=== PATIENT | female | born 1970 | race Caucasian/White ===

== ENCOUNTER → 2016-10-24 | Outpatient (CLI) | payer BC | END | disposition home or self-care (01) | LOC: CPPFTMAIN 13:06 | PROVIDERS: ATTEND Internal Medicine Sleep Medicine | DX: G47.33 Obstructive sleep apnea (adult) (pediatric) (principal); J45.50 Severe persistent asthma, uncomplicated | CPT/HCPCS: 94060; 94726; 94729 ==

== ENCOUNTER → 2018-01-30 | Outpatient (CLI) | payer BC ==
--- NOTE | 2018-01-30 08:42 | MR ---
EXAMINATION TYPE: MR lumbar spine wo con DATE OF EXAM: 01/30/2018 COMPARISON: Lumbar spine x-ray July 27, 2017 HISTORY: Lumbago with sciatica, left side per order. Back pain causing bilateral leg numbness hand pa in since May 2017 per patient. TECHNIQUE: Multiplanar, multisequence imaging of the lumbar spine is performed without IV contrast. FINDINGS: Sagittal images of the lumbar spine show vertebral body heights and alignment to appear sat isfactory. Multilevel disc desiccation is seen with relative sparing of L1-L2 level. There is moderat e disc space narrowing L2-L3 level with mild to moderate anterior spurring is heterogeneous Modic typ e II degenerative endplate changes. Posterior disc herniation is seen at this level on sagittal image s. The conus medullaris is normal in position and signal ending at inferior L1 level. There is a fo cus of rim T2 hypointense round lesion at the L4-L5 disc space noted sagittal image 6 left paracentra l region noted. Areas isointense on T1-weighted images. There is overall heterogeneity of bone marrow signal intensity with mild multilevel anterior spurring. Axial images at the T12-L1 and L1-L2 levels show mild to moderate facet degenerative changes bilater ally but spinal canal is preserved and bilateral neural foramina are patent. Axial images at L2-L3 level show moderate broad disc bulge with right lateral disc protrusion compone nt effacing anterior thecal sac. There is mild facet arthropathy bilaterally. There is asymmetric mil d to moderate right-sided inferior neural foraminal narrowing. Encroachment on right L2 nerve is susp ected axial image 18 and sagittal image 10 at the extraforaminal location. Axial images at L3-L4 level show mild to moderate facet degenerative changes bilaterally. There is mi ld broad disc bulge mildly effacing anterior thecal sac. There is mild to moderate left greater than right anterior-inferior neural foraminal narrowing. Axial images at L4-L5 show moderate to advanced facet degenerative changes bilaterally. I suspect syn ovial cyst related to asymmetric advanced left-sided facet arthropathy effacing the lateral recess an d left lateral spinal canal axial image 8. There is mild broad-based posterior disc protrusion. There is mild right-sided neural foraminal narrowing. There is moderate to advanced left-sided neural fora estefany narrowing encroaching on left L4 nerve seen best on sagittal images 3 and 4 and axial image 8. Axial images at L5-S1 level show advanced facet degenerative changes bilaterally. There is broad disc bulge with right lateral disc protrusion component axial image 2. Spinal canal is preserved. Left-si ded neural foramen is patent. Right side shows mild narrowing. No suspicious retroperitoneal findings are identified. IMPRESSION: Multilevel degenerative changes in lumbar spine as detailed above. Most prominent degener ative changes and disc herniations L2-L3 level. Most prominent facet arthropathy lower lumbar levels with a 1.1 cm synovial cyst related to left-sided advanced facet arthropathy at every significant mas s effect on lateral recess and left lateral spinal canal. Further details are noted as discussed lornav e. Facet arthropathy quite pronounced for patient's chronologic age.
== END ==
LOC: RADMRIMAIN 07:59
PROVIDERS: ATTEND Family Medicine
DX: M71.38 Other bursal cyst, other site (principal); M51.26 Other intervertebral disc displacement, lumbar region; M46.96 Unspecified inflammatory spondylopathy, lumbar region
CPT/HCPCS: 72148

== ENCOUNTER → 2018-05-09 | Outpatient (CLI) | payer BC ==
--- NOTE | 2018-05-09 11:47 | XR ---
EXAMINATION TYPE: XR chest 2V DATE OF EXAM: 05/09/2018 COMPARISON: Chest x-ray August 01, 2016. HISTORY: Preoperative study for back surgery. TECHNIQUE: Frontal and lateral views of the chest are obtained. FINDINGS: There is no focal air space opacity, pleural effusion, or pneumothorax seen. The cardiac silhouette size is within normal limits. The osseous structures are intact. Cholecystectomy clips a re redemonstrated on lateral view. IMPRESSION: No acute cardiopulmonary process. No significant change from prior.
== END | disposition home or self-care (01) ==
LOC: RADXRYALE 11:33
PROVIDERS: ATTEND Physician Assistant Medical
DX: Z01.818 Encounter for other preprocedural examination (principal)
CPT/HCPCS: 71046

== ENCOUNTER → 2018-05-10 | Outpatient (CLI) | payer BC ==
[2018-05-10 12:12] LABS: Appearance,Urine Clear (Clear); Bilirubin,Urine Negative (Negative); Blood,Urine Negative (Negative); Color,Urine Light Yellow; Glucose,Urine (UA) Negative (Negative); Ketones,Urine Negative (Negative); Leukocyte Esterase,Urine Negative (Negative); Nitrite,Urine Negative (Negative); PH, Urine 6.5 (5.0-8.0); Protein,Urine Negative (Negative); Specific Gravity,Urine 1.006 (1.001-1.035); Urobilinogen,Urine <2.0 mg/dL (<2.0)
[2018-05-10 12:32] LABS: Basophils % (A) 0 %; Eosinophils # (A) 0.2 k/uL (0-0.7); Eosinophils % (A) 3 %; HCT 41.1 % (34.0-46.0); HGB 13.6 gm/dL (11.4-16.0); Lymphocytes # (A) 2.3 k/uL (1.0-4.8); Lymphocytes % (A) 33 %; MCH 30.6 pg (25.0-35.0); MCHC 33.2 g/dL (31.0-37.0); MCV 92.2 fL (80.0-100.0); Mean Platelet Volume 7.6; Monocytes # (A) 0.3 k/uL (0-1.0); Monocytes % (A) 4 %; Neutrophils # (A) 4.1 k/uL (1.3-7.7); Neutrophils % (A) 59 %; Platelet Count 349 k/uL (150-450); RBC 4.45 m/uL (3.80-5.40)
[2018-05-10 12:42] LABS: INR 0.9 (<1.2); Partial Thromboplastin Time 22.2 sec (22.0-30.0); Prothrombin Time 9.4 sec (9.0-12.0)
[2018-05-10 13:21] LABS: Anion Gap 9 mmol/L; Blood Urea Nitrogen 11 mg/dL (7-17); Calcium 9.6 mg/dL (8.4-10.2); Carbon Dioxide 25 mmol/L (22-30); Chloride 106 mmol/L (98-107); Glucose 89 mg/dL (74-99); Potassium 4.5 mmol/L (3.5-5.1); Sodium 140 mmol/L (137-145)
== END ==
LOC: LABPAT 11:00
PROVIDERS: ATTEND Orthopaedic Surgery Orthopaedic Surgery of the Spine
DX: Z01.812 Encounter for preprocedural laboratory examination (principal); M48.062 Spinal stenosis, lumbar region with neurogenic claudication; M71.38 Other bursal cyst, other site
CPT/HCPCS: 36415; 80048; 81003; 85025; 85610; 85730; 86850; 86900; 86901

== ENCOUNTER 2018-05-15 07:23 | Day surgery (SDC) | payer BC ==
[2018-05-09 09:33] VITALS: BMI 44.9
[~2018-05-15 07:23] MED LIST: BACITRACIN 50,000 UNIT, POLYMYXIN B 500,000 UNIT in SODIUM CHLORIDE 0.9% IRRIGATIO 1,00... IRRIGATION ONE
[2018-05-15] MEDS ORDERED: LACTATED RINGERS 1,000 ML IV ONE ×2 (08:31)
[2018-05-15] MEDS ORDERED: LIDOCAINE 1% 20 ML VIAL (10MG/ML) FOR IV START INTRADERMA ONE (08:31)
[2018-05-15] MEDS ORDERED: ONDANSETRON 4 MG/2 ML VIAL IVP ONE (08:40)
[2018-05-15] MEDS ORDERED: CLINDAMYCIN 600 MG in DEXTROSE 5% IN WATER 50 ML IVPB STA ×2 (08:45)
[2018-05-15] MEDS: ceFAZolin IN SWFI 2 GM/20 ML SYRINGE IVP ONE ×2 (09:32→14:17)
[2018-05-15] MEDS ORDERED: LIDOCAINE 0.5%-EPI 1:200,000 50 ML VIAL SQ ONE ×2 (09:50)
[2018-05-15] MEDS ORDERED: THROMBIN (BOVINE) 5,000 UNIT VIAL TOPICAL ONE (09:54)
[2018-05-15] MEDS ORDERED: GELATIN SPONGE,ABSORB (LARGE) 1 EACH SPONGE TOPICAL ONE (09:54)
[2018-05-15] MEDS ORDERED: methylPREDNISolone ACETATE 40 MG/ML 1 ML VIAL MISCELLANE ONE (10:18)
--- NOTE | 2018-05-15 10:27 | XR ---
Fluoroscopy History: lumbar laminectomy lumbar laminectomy, 6sec fl time
[2018-05-15] MEDS ORDERED: ONDANSETRON 4 MG/2 ML VIAL IVP PRN (10:40)
[2018-05-15] MEDS ORDERED: IBUPROFEN 600 MG TAB PO PRN (10:40)
[2018-05-15] MEDS ORDERED: HYDROmorphone 1 MG/ML 1 ML SYRINGE IVP PRN ×2 (10:40)
[2018-05-15] MEDS ORDERED: KETOROLAC 30 MG/ML 1 ML VIAL IVP PRN (10:40)
[2018-05-15] MEDS ORDERED: BENZOCAINE/MENTHOL LOZENG 1 EACH LOZENGE MUCOUS MEM PRN (10:40)
[2018-05-15] MEDS ORDERED: HYDROcodone/APAP 5-325MG 1 EACH TAB PO PRN ×2 (10:40)
[2018-05-15] MEDS ORDERED: ALBUTEROL NEBULIZED 2.5 MG/3 ML INHALATION PRN (10:42)
[2018-05-15] MEDS ORDERED: FLUTICASONE 50MCG/SPRAY NASAL 16GM EA NOSTRIL PRN (10:42)
[2018-05-15] MEDS ORDERED: Acetaminophen-Codeine 300-30mg TAB PO PRN (10:42)
[2018-05-15] MEDS ORDERED: SODIUM CHLORIDE 0.9% 1,000 ML IV SCH (10:45)
--- NOTE | 2018-05-15 10:53 | P.OP ---
Date of Procedure: 05/15/18 Preoperative Diagnosis: Epidural mass L4 5, presumable facet cyst Severe spinal stenosis L4 5 due to epidural mass Lower extremity radiculopathy with weakness Postoperative Diagnosis: Same Anesthesia: GETA Pathology: other (Epidural mass, presumable facet cyst from L4 5 sent to pathology) Condition: stable Disposition: PACU Description of Procedure: BRIEF OPERATIVE NOTE Preoperative Diagnosis:Epidural mass L4 5, presumable facet cyst Severe spinal stenosis L4 5 due to epidural mass Lower extremity radiculopathy with weakness Postoperative Diagnosis: Same Procedure: Laminectomy and decompression with partial medial facetectomy L4 5 Excision of epidural mass, presumable facet cyst Surgeon: Dr. Barkley Key Attendant: Nic Guevara is present throughout the entire the case persistence during positioning, dissection, exposure, visualization, and all crucial elements of the case as well as closure. Anesthesia: General anesthesia Estimated blood loss: Approximately 30 mL Complications: None apparent Components implanted: None Specimen: Epidural mass, presumable facet cyst on to pathology in formalin Disposition: To recovery room in good stable condition. OPERATIVE INDICATIONS The patient has been having issues in their lower back and lower extremities. She is found to have a large epidural mass at L4 5 which correlated well with her low back and lower extremity pain. She is having radiculopathy and some weakness in her lower extremity. The mass was presumably a facet cyst on the left with her symptoms. The patient has been through conservative treatment. We discussed various treatment options including surgery, and the patient wishes to proceed with surgery We discussed the risk, patient's alternatives and benefits of surgery including but not limited to, risk of bleeding risk of infection, risk of need for further surgery, risk of decreased, loss of motion, loss of function, nerve damage, paralysis, heart attack, blindness and . OPERATIVE SUMMARY After discussing all the risks, patient alternatives and benefits at length, the patient elected to proceed with surgical intervention, signed informed consent, and presented for their procedure. The patient was seen and examined in the preoperative holding area and the surgical site was marked. The patient was given antibiotics and brought to the operating room. The patient was sedated and intubated by anesthesia in standard fashion. The patient was positioned on to the operating room table in a prone position on the appropriate frame which was well-padded and well molded. We were careful to pad any bony prominences and pressure points. We were careful to maintain the patient's cervical spine and good neutral alignment and position throughout. The patient was prepped and draped in a normal standard fashion. An appropriate timeout and keystone protocol performed. We were able to proceed with the surgery. Fluoroscopy was utilized to establish the appropriate level at L4 5. The local wound area was infiltrated with local anesthetic. An incision was made at the midline longitudinally over the appropriate levels approximately 2 and half centimeters and L4 5. Dissection was taken down subcutaneously to the level of the fascia which was split midline. Dissection was taken over the lamina. Intraoperative fluoroscopy was taken which showed a marker at the appropriate level. With the appropriate level positively confirmed at L4 5, we were able to proceed with laminectomy. The wound was copiously irrigated and suctioned dry as had been done periodically throughout the case. I performed a laminectomy with a combination of curettes and a high- speed bur and Kerrison rongeurs. A small medial facetectomy was performed again further access. A partial foraminotomy was also performed. Portions of the ligamentum flavum were taken down. There was a large structure at the posterior lateral aspect extending from the facet joint which was encapsulated. As a presumable facet cyst. I was able to mobilize the cyst itself and take down the margins as well as the contents of the cyst. Was filled with cystic type fluid and congealed fluid. The facet capsule and the facet cyst capsule as well as the contents of the cyst were removed and passed off to be sent to pathology. I was able to expose the dura and traversing nerve root. I was able to mobilize the traversing nerve root and gain access to the disc space. Removal of the cyst offered excellent decompression posteriorly. The nerve root was freely mobile. There was no specific herniation or extruded fragment from the disc space itself. I did not feel we had to perform any discectomy at this point. There were no extruded fragments noted. There is no evidence of dural tear or leak. Good hemostasis maintained. The wound was copiously irrigated and suctioned dry. Good decompression and excision of the epidural mass was noted. We were able to proceed with closure. The fascia was closed for a watertight closure. The subcuticular tissue was closed with absorbable suture. The wound was cleaned and dried and dressed with the appropriate dressing. The drapes were broken down. The patient was gently rolled back onto their hospital bed being careful to maintain their cervical spine and good neutral alignment and position. They were woken up by anesthesia, extubated, and brought to the recovery room in good stable condition. The patient will be admitted to the hospital for observation and for appropriate postoperative care, medical management and monitoring. We will continue to follow them closely about the postoperative course.
[2018-05-15 15:05] VITALS: BP 117/58; PULSE 68; RESP 18; TEMP 97.8
[2018-05-15] MEDS ORDERED: ceFAZolin IN SWFI 2 GM/20 ML SYRINGE IVP SCH (16:00)
[2018-05-15] MEDS ORDERED: FLUTICASONE 44 MCG INHALER INHALATION SCH (20:00)
[2018-05-16] MEDS ORDERED: FERROUS SULFATE 325 MG TAB PO SCH (09:00)
[2018-05-16] MEDS ORDERED: FAMOTIDINE 20 MG TAB PO SCH (09:00)
[2018-05-16] MEDS ORDERED: LORATADINE 10 MG TAB PO SCH (09:00)
[2018-05-16] MEDS ORDERED: ATENOLOL 50 MG TAB PO SCH (09:00)
[2018-05-16] MEDS ORDERED: CHOLECALCIFEROL 1,000 UNIT TAB PO SCH (09:00)
[2018-05-16] MEDS ORDERED: VENLAFAXINE HCL 75 MG TAB PO SCH (09:00)
[2018-05-16] MEDS ORDERED: MONTELUKAST 10 MG TAB PO SCH (09:00)
[2018-05-16] MEDS ORDERED: MULTIVITAMINS, THERA 1 EACH TAB PO SCH (12:00)
== END 2018-05-15 16:15 | disposition home or self-care (01) ==
LOC: OR 07:23 → 5MS5E 10:51 → OR 16:15
PROVIDERS: ATTEND Orthopaedic Surgery Orthopaedic Surgery of the Spine
DX: M48.062 Spinal stenosis, lumbar region with neurogenic claudication (principal); M71.38 Other bursal cyst, other site; M43.16 Spondylolisthesis, lumbar region; M47.26 Other spondylosis with radiculopathy, lumbar region; M41.86 Other forms of scoliosis, lumbar region; E78.5 Hyperlipidemia, unspecified; Z87.891 Personal history of nicotine dependence; Z79.1 Long term (current) use of non-steroidal anti-inflammatories (NSAID); Z79.51 Long term (current) use of inhaled steroids; Z79.899 Other long term (current) drug therapy; Z91.041 Radiographic dye allergy status; Z88.0 Allergy status to penicillin; Z91.013 Allergy to seafood
CPT/HCPCS: 81025; 86900; 86901; 88304; 86850; 72020; 63267; J1030; J2405; J1885; J1170

== ENCOUNTER → 2019-01-01 | Outpatient (CLI) | payer BC ==
--- NOTE | 2019-01-02 09:46 | MM ---
Reason for exam: screening (asymptomatic). Last mammogram was performed 3 years and 9 months ago. History: Family history of breast cancer in aunt. Took hormonal contraceptives for 7 years. Physical Findings: A clinical breast exam by your physician is recommended on an annual basis and results should be correlated with mammographic findings. MG Screening Mammo w CAD Bilateral CC and MLO view(s) were taken. Prior study comparison: April 09, 2015, bilateral MG screening mammo w CAD. November 26, 2013, bilateral digital screening mammo w/CAD. There are scattered fibroglandular densities. Benign calcifications in the left breast. No significant changes when compared with prior studies. ASSESSMENT: Benign, BI-RAD 2 RECOMMENDATION: Routine screening mammogram of both breasts in 1 year.
== END | disposition home or self-care (01) ==
LOC: RADMAMWWP 10:49
PROVIDERS: ATTEND Family Medicine
DX: Z12.31 Encounter for screening mammogram for malignant neoplasm of breast (principal)
CPT/HCPCS: 77067

== ENCOUNTER → 2019-02-17 | Outpatient (CLI) | payer BC ==
--- NOTE | 2019-02-17 14:26 | XR ---
EXAMINATION TYPE: XR chest 2V DATE OF EXAM: 02/17/2019 COMPARISON: 05/09/2018 HISTORY: Preoperative clearance. TECHNIQUE: Frontal and lateral views of the chest are obtained. FINDINGS: There is no focal air space opacity, pleural effusion, or pneumothorax seen. Minimal linea r left basilar subsegmental atelectasis is seen. The cardiac silhouette size is within normal limits . The osseous structures are intact. Cholecystectomy clips are noted. IMPRESSION: Minimal left basilar linear subsegmental atelectasis, otherwise no acute cardiopulmonary process.
== END | disposition home or self-care (01) ==
LOC: RADXRYALE 14:04
PROVIDERS: ATTEND Physician Assistant Medical
DX: Z01.818 Encounter for other preprocedural examination (principal); J98.11 Atelectasis
CPT/HCPCS: 71046

== ENCOUNTER 2019-03-03 11:54 | Inpatient (IN) | payer BC ==
[2019-02-26 13:29] VITALS: BMI 43.0
[~2019-03-03 11:54] MED LIST changes: +LIDOCAINE 1% 20 ML VIAL (10MG/ML) FOR IV START INTRADERMA PRN; +ONDANSETRON 4 MG/2 ML VIAL IVP ONE; +ceFAZolin IN SWFI 2 GM/20 ML SYRINGE IVP ONE
[2019-03-03] MEDS: LACTATED RINGERS 1,000 ML IV SCH (12:34)
[2019-03-03] MEDS ORDERED: LIDOCAINE 1% INJ 10MG/ML (20 ML MDV) ONE (13:34)
[2019-03-03] MEDS ORDERED: GLYCOPYRROLATE 0.2 MG/ML 2 ML VIAL ONE (13:34)
[2019-03-03] MEDS ORDERED: NEOSTIGMINE 1 MG/ML 10 ML VIAL ONE (13:34)
[2019-03-03] MEDS ORDERED: ePHEDrine SULFATE/0.9% NACL/PF 50 MG/5 ML SYRINGE IV ONE (13:34)
[2019-03-03] MEDS ORDERED: MIDAZOLAM 2 MG/2 ML VIAL ONE (13:34)
[2019-03-03] MEDS ORDERED: fentaNYL (PF) 50 MCG/ML 2 ML AMP ONE (13:34)
[2019-03-03] MEDS ORDERED: ROCURONIUM BROMIDE 10 MG/ML 10 ML VIAL IV ONE (13:34)
[2019-03-03] MEDS ORDERED: SUCCINYLCHOLINE CHLORIDE 100 MG/5 ML SYR IV ONE (13:34)
[2019-03-03] MEDS ORDERED: DEXAMETHASONE SOD PHOS (MDV) 100 MG/10 ML VIAL ONE (13:34)
[2019-03-03] MEDS ORDERED: PROPOFOL 10 MG/ML 20 ML VIAL IV ONE (13:34)
[2019-03-03] MEDS ORDERED: HYDROmorphone (PF) 1 MG/ML ONE (13:34)
[2019-03-03] MEDS ORDERED: LIDOCAINE 0.5%-EPI 1:200,000 50 ML VIAL SQ ONE ×2 (14:22)
[2019-03-03] MEDS ORDERED: GELATIN SPONGE,ABSORB (LARGE) 1 EACH SPONGE TOPICAL ONE (14:22)
[2019-03-03] MEDS ORDERED: LACTATED RINGERS 1,000 ML IV ONE ×2 (15:33)
[2019-03-03] MEDS ORDERED: ONDANSETRON 4 MG/2 ML VIAL IVP PRN (16:52)
[2019-03-03] MEDS ORDERED: HYDROmorphone 0.5 MG/0.5 ML SYRINGE IVP PRN (16:52)
[2019-03-03] MEDS ORDERED: HYDROcodone/APAP 5-325MG 1 EACH TAB PO PRN (16:52)
[2019-03-03] MEDS ORDERED: HYDROmorphone 1 MG/ML 1 ML SYRINGE IVP PRN (16:52)
[2019-03-03] MEDS ORDERED: BENZOCAINE/MENTHOL LOZENG 1 EACH LOZENGE MUCOUS MEM PRN (16:52)
[2019-03-03] MEDS ORDERED: MAGNESIUM HYDROXIDE 2,400 MG/10 ML CUP PO PRN (16:52)
[2019-03-03] MEDS ORDERED: ALBUTEROL NEBULIZED 2.5 MG/3 ML INHALATION PRN (16:55)
--- NOTE | 2019-03-03 17:01 | P.OP ---
Date of Procedure: 03/03/19 Preoperative Diagnosis: Herniated nucleus pulposis L4 5, degenerative scoliosis, spondylolisthesis L4 5, history of laminectomy L4 5, lower extremity radiculopathy, low back pain Postoperative Diagnosis: Same Anesthesia: GETA Pathology: none sent Condition: stable Disposition: PACU Description of Procedure: DESCRIPTION OF PROCEDURE(S): BRIEF OPERATIVE NOTE Preoperative Diagnosis: Herniated nucleus pulposis L4 5, degenerative scoliosis, spondylolisthesis L4 5, history of laminectomy L4 5, lower extremity radiculopathy, low back pain Postoperative Diagnosis: Same Procedure: Revision Laminectomy and decompression L4 5 Minimally invasive Posterior lateral decompression and fusion L4 5 Minimally invasive Transforaminal lumbar interbody fusion for a 360 fusion L4 5 Discectomy for decompression L4 5 Placement of interbody graft L4 5 Local autogenous bone grafting Harvesting of bone marrow aspirate be of the pedicle and vertebral body of L4 Use of bone graft extenders Surgeon: Dr. Barkley [employer] Account[employer] Manager: Nic PERRY who is present throughout the entire the case persistence during positioning, dissection, exposure, visualization, and all crucial elements of the case as well as closure. Anesthesia: General anesthesia Estimated blood loss: Approximately 250 mL Complications: None apparent Components implanted: K2M middle evasive [place] pedicle screw system with a cascading the interbody cage and 1 osteal amp sponge and DBX bone fibers to supplemental local autogenous and bone marrow aspirate graft Disposition: To recovery room in good stable condition. OPERATIVE INDICATIONS The patient has had long-standing issues in their lower back and lower extremities. At the end of last year she had a large facet cyst at L4 5 and was having severe radiculopathy. She underwent laminectomy decompression and excision of facet cyst and initially did quite well with this. She was doing well for several months until the past couple months where she was having worsening pain and symptoms at her back and in her left lower extremity. She is found have a new disc herniation at the far lateral space L4 5 with evidence of progressive degeneration and spondylolisthesis with asymmetric disc degeneration and degenerative scoliosis at L4 5. She is having worsening symptoms despite conservative care The patient has been through conservative treatment. She is not having a long-lasting benefit with conservative treatment and we discussed surgical options with her. We discussed the possibility of revision laminectomy decompression versus the possibility of decompression with fusion. Given her prior surgery and advanced degeneration with listhesis and asymmetric disc degeneration we felt that stabilization would be necessary. We discussed various treatment options including surgery, and the patient wishes to proceed with surgery We discussed the risk, patient's alternatives and benefits of surgery including but not limited to, risk of bleeding risk of infection, risk of need for further surgery, risk of decreased, loss of motion, muscle function, malunion nonunion, hardware failure, nerve damage, paralysis, heart attack, blindness and . OPERATIVE SUMMARY After discussing all the risks, patient alternatives and benefits at length, the patient elected to proceed with surgical intervention, signed informed consent, and presented for their procedure. The patient was seen and examined in the preoperative holding area and the surgical site was marked. The patient was given antibiotics and brought to the operating room. The patient was sedated and intubated by anesthesia in standard fashion. The patient was positioned on to the operating room table in a prone position on the appropriate frame which was well-padded and well molded. We were careful to pad any bony prominences and pressure points. We were careful to maintain the patient's cervical spine and good neutral alignment and position throughout. The patient was prepped and draped in a normal standard fashion. An appropriate timeout and keystone protocol performed. We were able to proceed with the surgery. The local wound area was infiltrated with local anesthetic. I was able utilize C-arm guidance to establish appropriate position over the pedicles bilaterally at the appropriate levels of L4 5. With the appropriate levels confirmed was able to make small stab incisions over the appropriate pedicle sites bilaterally. Utilizing C-arm in his house able to establish a Jamshidi needle over the lateral aspect of the pedicle and advanced the trocar into the pedicle being careful not to breech superiorly inferiorly medially or laterally. Position was confirmed regularly with AP and lateral images on C- arm. I was able to establish the trocar into the pedicle appropriately into the posterior aspect of the vertebral body bilaterally at the appropriate levels at L4 5. This was done at each of the pedicle positions and each of the vertebrae. On the right at L4 I did withdraw approximately 30 mL of bone marrow aspirate from the vertebral body. I was able place the guidewire into the trocar and into the vertebral body appropriately under C-arm guidance. Dissection was taken down over the wire to the appropriate starting position for the screw placed. The appropriate length screw was chosen, threaded over the guidewire and screwed appropriately into the pedicle and vertebral body under C-arm guidance in excellent alignment and position with good bony purchase. This is done at each of the screw sites at the appropriate levels. With the screws intact I extended the incision to connect the screw hole sites on the most symptomatic side on the left at L4 5. I dissected down to establish access over the pars and lamina to the base of the spinous process. I was able to expose the facet joint. The capsule the facet was taken down and showed some facet arthrosis at the joint. There is significant scar tissue formation around the medial aspect of the facet joint as well and along the traversing nerve root and dura. I was able to use a combination of curettes and Kerrison rongeurs and a high-speed drill to take down the facet joint and do a facetectomy. Partial laminectomy was also performed. I was able get excellent foraminal decompression and central decompression with undermining across midline to perform a laminectomy centrally and contralaterally. I had to perform rate care to take down some of the scar tissue while leaving the dura intact. There was still some remaining scar tissue around the traversing nerve root which was not able to be removed. As able get good central decompression. The ligamentum flavum was taken down to further decompress centrally and at bilateral neural foramen. I was able to expose the disc space and visualize the traversing nerve root. Note was made of some disc protrusion and disc herniation under the facet joint which had been removed at the level causing further compression of the nerve root. I was able to establish a annulotomy at the appropriate level protecting soft tissue and neural structures. Note was made of some disc desiccation at the disc. I performed a complete discectomy at L4 5 with accommodation of curettes and rasps and scrapers. I was able get good endplate preparation at the disc space. I sized for the appropriate size interbody spacer protecting the soft tissue and neural structures. The wound was copiously irrigated and suctioned dry. There is no evidence of any dural tear or leak. I was able to pack the disc space with local autogenous bone graft as well as a small amount of bone graft which was also placed into the interbody cage itself. Protecting the soft tissue structures and neural structures I was able place the interbody cage in good alignment and good position with good fit and fill at the interbody space. His issues was confirmed with C-arm guidance. Good hemostasis maintained. There is no evidence of any dural tear or leak. The wound was irrigated and suctioned dry. With the hardware intact, intraoperative C-arm imaging was again taken which showed good alignment and position of the hardware at the appropriate levels at L4 5. We were then able to measure, contour and place the rods and appropriate hardware bilaterally. I was able to place capcrews, tighten them down, and torque them with the torque screwdriver appropriately. With this intact I was able to place the local autogenous bone graft with additional bone graft enhancer as necessary into the posterior lateral gutters over the decorticated transverse processes. The remainder of the bone graft was placed over the facet joint on the contralateral side after taking down the facet joint capsule. With the bone graft intact, a stable construct, and good decompression at the appropriate levels, we were able to proceed with closure. Good hemostasis was maintained. There is no evidence of dural tear or leak. The fascia was closed for a watertight closure. he subcuticular tissue was closed with absorbable suture. The wound was cleaned and dried and dressed with the appropriate dressing. The drapes were broken down. The patient was gently rolled back onto their hospital bed being careful to maintain their cervical spine and good neutral alignment and position. They were woken up by anesthesia, extubated, and brought to the recovery room in good stable condition. The patient will be admitted to the hospital for appropriate postoperative care, medical management and monitoring. We will continue to follow them closely about the postoperative course.
[2019-03-03] MEDS: fentaNYL (PF) 50 MCG/ML 2 ML AMP IV PRN ×2 (17:06→17:16)
--- NOTE | 2019-03-03 17:43 | XR ---
Limited lumbar spine HISTORY: Lumbar fusion 5 intraoperative C-arm images document the procedure.
--- NOTE | 2019-03-03 17:44 | FL ---
Fluoroscopy HISTORY: Lumbar fusion 2 minutes 28 seconds fluoroscopy time supplied to the referring clinician. 5 intraoperative C-arm im ages document the procedure. See dictated report from orthopedic surgery.
[2019-03-03] MEDS: FAMOTIDINE 20 MG TAB PO SCH (19:01)
[2019-03-03] MEDS: PRAVASTATIN SODIUM 20 MG TAB PO SCH (19:01)
[2019-03-03] MEDS: HYDROcodone/APAP 5-325MG 1 EACH TAB PO PRN (19:59)
[2019-03-03] MEDS: ATENOLOL 50 MG TAB PO SCH (19:59)
[2019-03-03] MEDS: VENLAFAXINE HCL ER 75 MG CAP PO SCH (19:59)
[2019-03-03] MEDS: MONTELUKAST 10 MG TAB PO SCH (19:59)
[2019-03-03] MEDS: SODIUM CHLORIDE 0.9% 1,000 ML IV SCH (20:03)
[2019-03-03] MEDS: ACETAMINOPHEN TAB 500 MG TAB PO SCH (21:50)
[2019-03-03] MEDS: ceFAZolin 3 GM in SODIUM CHLORIDE 0.9% 100 ML IVPB SCH (21:50)
[2019-03-04] MEDS: HYDROcodone/APAP 5-325MG 1 EACH TAB PO PRN ×6 (00:01→21:15)
[2019-03-04] MEDS: ceFAZolin 3 GM in SODIUM CHLORIDE 0.9% 100 ML IVPB SCH (05:03)
[2019-03-04] MEDS: SODIUM CHLORIDE 0.9% 1,000 ML IV SCH (05:05)
[2019-03-04] MEDS: LACTATED RINGERS 1,000 ML IV SCH (07:04)
[2019-03-04] MEDS: FLUTICASONE 110 MCG INHALER INHALATION SCH (08:32)
[2019-03-04 08:34] LABS: African American GFR (CKD) >90 (>60 ml/min/1.73 sqM); Anion Gap 10 mmol/L; Blood Urea Nitrogen 9 mg/dL (7-17); Carbon Dioxide 21 mmol/L (22-30); Chloride 107 mmol/L (98-107); Glucose 112 mg/dL (74-99); Potassium 4.2 mmol/L (3.5-5.1); Sodium 138 mmol/L (137-145)
--- NOTE | 2019-03-04 09:02 | P.PN ---
Progress Note - Text Progress Note Date: 03/04/19 Orthopedic Spine Patient is a pleasant 48-year-old female who is seen and examined at the bedside following posterior lateral decompression and fusion performed yesterday. Patient states they are doing well postsurgically. She continues to have some numbness in the left lower extremity but states she is not currently experiencing any pain in the left lower extremity. She was experiencing significant pain in the left lower extremity prior to surgical intervention. He r low back pain has been adequately controlled postoperatively. Her pain is currently being controlled with oral medications. She is not requiring IV narcotic medication for pain control. She is very happy with her progress postoperatively. She's been able to get out of bed on her own. She is currently sitting in bedside chair. Currently does not complain of nausea, vomiting, fever, or chills. Patient is eating and voiding freely without difficulty. Physical Exam Lumbar Fusion: Status post surgical day number 1 Patient is awake, alert, and oriented 3 Vital signs stable Good chest excursion with deep inspiration and expiration Abdomen soft nontender Dorsiflexion, plantarflexion, and extensor hallucis longus positive sustained bilaterally No signs or symptoms of DVT; no calf pain; pneumatic cuffs not currently intact bilateral lower extremities Dressing is dry and intact with some dried blood over the inferior portions of the Telfa; no erythema, purulence, or signs of infection Neurovascularly intact bilaterally lower extremities Assessment: L4-5 minimally invasive posterior lateral decompression and fusion with transforaminal lumbar interbody fusion and revision laminectomy Left lower extremity radiculopathy L4-5 spondylolisthesis Low back pain History of L4-5 laminectomy Degenerative scoliosis History of hyperlipidemia, shortness of breath, and heart arrhythmia Obesity Plan: 1. Ambulate as tolerated; work with Physical Therapy to increase mobilization 2. Continue pain control with IV and oral medications; patient currently only requiring oral medications for pain control 3. Dressing to remain intact and may be changed to Telfa and Tegaderm 4. Medical management can continue to manage patient for patient's other medical issues 5. We will continue to follow the patient closely; patient has been progressing well postoperatively. If she continues to improve throughout the day, we will plan for discharge home tomorrow, 03/05/2019 6. Patient can follow-up with Nic Nguyen PA-C or Dr. Beto Barkley at [facility] in 2-3 weeks following discharge
[2019-03-04 09:13] LABS: Basophils % (A) 0 %; Eosinophils % (A) 0 %; HCT 38.5 % (34.0-46.0); HGB 12.4 gm/dL (11.4-16.0); Lymphocytes # (A) 1.2 k/uL (1.0-4.8); Lymphocytes % (A) 13 %; MCH 29.5 pg (25.0-35.0); MCHC 32.3 g/dL (31.0-37.0); MCV 91.2 fL (80.0-100.0); Mean Platelet Volume 7.9; Monocytes # (A) 0.4 k/uL (0-1.0); Monocytes % (A) 4 %; Neutrophils # (A) 7.9 k/uL (1.3-7.7); Neutrophils % (A) 83 %; Platelet Count 260 k/uL (150-450); RBC 4.22 m/uL (3.80-5.40); RDW 13.2 % (11.5-15.5); WBC 9.6 k/uL (3.8-10.6)
[2019-03-04] MEDS: FERROUS SULFATE 325 MG TAB PO SCH (10:23)
[2019-03-04] MEDS: CHOLECALCIFEROL 1,000 UNIT TAB PO SCH (10:23)
[2019-03-04] MEDS: SENNOSIDES-DOCUSATE SODIUM 1 EACH TAB PO SCH (10:24)
[2019-03-04] MEDS: MULTIVITAMINS, THERA 1 EACH TAB PO SCH (10:24)
[2019-03-04] MEDS: PRAVASTATIN SODIUM 20 MG TAB PO SCH (10:24)
[2019-03-04] MEDS: ACETAMINOPHEN TAB 500 MG TAB PO SCH ×3 (10:26→21:29)
[2019-03-04 12:33] VITALS: RESP 16
--- NOTE | 2019-03-04 14:24 | P.CONS ---
History of Present Illness - Reason for Consult Perioperative consultation management - History of Present Illness Patient is a pleasant 48-year-old the female was admitted for elective posterior lateral decompression and fusion surgery of the lumbar spine. 6 underwent surgery patient doesn't have a surgical drain in place pain is fairly well- controlled did pass gas. Patient does have history of hypertension patient of which is well controlled at this time patient is on atenolol which will be continued. Patient denied any fever chills nausea vomiting dysuria patient doesn't have a Montez catheter at this time completed perioperative antibiotics. Review of Systems REVIEW OF SYSTEMS: CONSTITUTIONAL: No fever, no malaise, no fatigue. HEENT: No recent visual problems or hearing problems. Denied any sore throat. CARDIOVASCULAR: No chest pain, orthopnea, PND, no palpitations, no syncope. PULMONARY: No shortness of breath, no cough, no hemoptysis. GASTROINTESTINAL: No diarrhea, no nausea, no vomiting, no abdominal pain. NEUROLOGICAL: No headaches, no weakness, no numbness. HEMATOLOGICAL: Denies any bleeding or petechiae. GENITOURINARY: Denies any burning micturition, frequency, or urgency. MUSCULOSKELETAL/RHEUMATOLOGICAL: Denies any joint pain, swelling, or any muscle pain. ENDOCRINE: Denies any polyuria or polydipsia. The rest of the 14-point review of systems is negative. Past Medical History Past Medical History: Asthma, GERD/Reflux, Hyperlipidemia Additional Past Medical History / Comment(s): arrythmia, migraines, occ palpitations, loose stools, History of Any Multi-Drug Resistant Organisms: None Reported Past Surgical History: Back Surgery, Bariatric Surgery, Section, Cholecystectomy, Heart Catheterization, Tubal Ligation Additional Past Surgical History / Comment(s): gastric bypass, laminectomy/cyst removed from spine, Past Anesthesia/Blood Transfusion Reactions: No Reported Reaction Smoking Status: Former smoker - Past Family History Father Family Medical History: Cancer Medications and Allergies Home Medications Medication Instructions Recorded Confirmed Type Albuterol Inhaler [Ventolin Hfa 2 puff INHALATION RT-QID PRN 05/09/18 03/03/19 History Inhaler] Atenolol 100 mg PO W/SUPPER 05/09/18 03/03/19 History Beclomethasone Dipropionate [Qvar 1 puff INHALATION RT-DAILY PRN 05/09/18 03/03/19 History 80 mcg] Cetirizine HCl [Zyrtec] 10 mg PO DAILY 05/09/18 03/03/19 History Cholecalciferol [Vitamin D3] 5,000 unit PO DAILY 05/09/18 03/03/19 History Montelukast [Singulair] 10 mg PO PC-SUPPER 05/09/18 03/03/19 History Multivitamins, Thera [Multivitamin 1 tab PO DAILY 05/09/18 03/03/19 History (formulary)] Ranitidine HCl [Zantac] 150 mg PO W/SUPPER 05/09/18 03/03/19 History Venlafaxine HCl [Effexor] 75 mg PO W/SUPPER 05/09/18 03/03/19 History Acetaminophen [Tylenol Extra 1,000 mg PO TID 02/26/19 03/03/19 History Strength] Farhat Back And Body 1 tab PO DAILY 02/26/19 03/03/19 History Iron Tablet 45 mg PO DAILY 02/26/19 03/03/19 History Naproxen Sodium [Aleve] 220 mg PO DAILY 02/26/19 03/03/19 History Pravastatin Sodium [Pravachol] 20 mg PO W/SUPPER 02/26/19 03/03/19 History Allergies Allergy/AdvReac Type Severity Reaction Status Date / Time Iodinated Contrast- Oral and Allergy Rash/Hives Verified 03/03/19 12:34 IV Dye Penicillins Allergy Rash/Hives Verified 03/03/19 12:34 sulfamethoxazole Allergy Rash/Hives Verified 03/03/19 12:34 [From Bactrim] trimethoprim [From Bactrim] Allergy Rash/Hives Verified 03/03/19 12:34 tramadol AdvReac Itching Verified 03/03/19 12:34 Physical Exam Vitals: Vital Signs Temp Pulse Pulse Resp BP Pulse Ox 03/04/19 12:32 99.4 F 67 16 144/55 98 03/04/19 06:56 17 03/04/19 05:33 98.0 F 60 18 144/84 97 03/03/19 23:57 63 140/84 98 03/03/19 20:00 89 135/70 98 03/03/19 19:30 82 124/81 97 03/03/19 19:00 79 117/64 03/03/19 18:49 97.6 F 80 16 119/78 94 L 03/03/19 18:20 16 03/03/19 18:19 71 120/79 03/03/19 18:04 97 16 112/76 97 03/03/19 17:49 97.1 F L 73 16 125/78 98 03/03/19 17:30 80 16 126/58 97 03/03/19 17:15 70 16 126/59 97 03/03/19 17:02 72 16 108/53 97 03/03/19 16:52 97.8 F 73 16 115/58 96 Intake and Output 03/03/19 03/04/19 03/04/19 22:59 06:59 14:59 Intake Total 457 224 5260 Output Total 300 2100 Balance 600 -1510 1100 Intake: IV 900 Intake, IV Titration 450 Amount Sodium Chloride 0.9% 1, 450 000 ml @ 75 mls/hr IV . [id number] PAUL Rx#:[id number] Oral 590 650 Output: Urine 100 2100 Uretheral (Montez) 1100 Estimated Blood Loss 200 Other: Voiding Method Indwelling Catheter Toilet # Voids 3 PHYSICAL EXAMINATION: GENERAL: The patient is alert and oriented x3, not in any acute distress. Well developed, well nourished. HEENT: Pupils are round and equally reacting to light. EOMI. No scleral icterus. No conjunctival pallor. Normocephalic, atraumatic. No pharyngeal erythema. No thyromegaly. CARDIOVASCULAR: S1 and S2 present. No murmurs, rubs, or gallops. PULMONARY: Chest is clear to auscultation, no wheezing or crackles. ABDOMEN: Soft, nontender, nondistended, normoactive bowel sounds. No palpable organomegaly. MUSCULOSKELETAL: No joint swelling or deformity. EXTREMITIES: No cyanosis, clubbing, or pedal edema. NEUROLOGICAL: Gross neurological examination did not reveal any focal deficits. SKIN: No rashes. Results CBC & Chem 7: 03/04/19 07:34 03/04/19 07:34 Labs: Abnormal Lab Results - Last 24 Hours (Table) 03/04/19 03/04/19 Range/Units 07:34 07:34 Neutrophils # 7.9 H (1.3-7.7) k/uL Carbon Dioxide 21 L (22-30) mmol/L Glucose 112 H (74-99) mg/dL Assessment and Plan Plan: -Hypertension patient blood pressure is fairly stable can be resumed on atenolol. -Lateral decompression of L4-L5 lumbar spine laminectomy: Pain management due to prophylaxis as per primary service and the continue physical therapy and occupational therapy and incentive spirometry -Asthma without any acute exacerbation patient was a former smoker -Gastroesophageal reflux disease -Hyperlipidemia for above-mentioned chronic medical problems patient was resumed on appropriate home medications.
[2019-03-04] MEDS: ATENOLOL 50 MG TAB PO SCH (17:42)
[2019-03-04] MEDS: MONTELUKAST 10 MG TAB PO SCH (17:42)
[2019-03-04] MEDS: VENLAFAXINE HCL ER 75 MG CAP PO SCH (17:42)
[2019-03-04] MEDS: FAMOTIDINE 20 MG TAB PO SCH (17:43)
[2019-03-05] MEDS: HYDROcodone/APAP 5-325MG 1 EACH TAB PO PRN ×4 (01:47→14:24)
[2019-03-05] MEDS: LACTATED RINGERS 1,000 ML IV SCH (04:28)
[2019-03-05] MEDS: ACETAMINOPHEN TAB 500 MG TAB PO SCH (09:44)
--- NOTE | 2019-03-05 10:19 | P.DS ---
Providers Date of admission: 03/03/19 11:54 Expected date of discharge: 03/05/19 Attending physician: Santi Barkley Consults: 03/03/19 16:52 Consult Physician Routine Consulting Provider: Lauro Weber Consult Reason/Comments: Medical management Do you want consulting provider notified?: Already Contacted Primary care physician: Jethro Bullock - Discharge Diagnosis(es) (1) Status post lumbar spinal fusion Current Visit: Yes Status: Acute (2) Low back pain radiating to lower extremity Current Visit: Yes Status: Acute (3) Degenerative scoliosis Current Visit: Yes Status: Acute (4) Spondylolisthesis at L4-L5 level Current Visit: Yes Status: Acute (5) Lumbar herniated disc Current Visit: Yes Status: Acute (6) History of laminectomy Current Visit: Yes Status: Acute (7) History of gastric bypass Current Visit: Yes Status: Acute (8) Obesity Current Visit: Yes Status: Acute (9) Hyperlipidemia Current Visit: Yes Status: Acute Hospital Course: This is a pleasant 48-year-old female who presented with low back pain and lower extremity radiculopathy, L4-5 spondylolisthesis, history of previous laminectomy L4-5, degenerative scoliosis, and L4-5 herniated nucleus pulposis who failed outpatient conservative therapy. She was admitted for an L4-5 minimally invasive posterior lateral decompression and fusion with transforaminal lumbar interbody fusion revision L4-5 laminectomy. The patient tolerated the procedure well and did well postoperatively. Her symptoms have been controlled with oral pain medications postoperatively. She has not required any IV pain medication. She does continue to take Summer Shade 5 mg/325 mg 2 tabs every 4 hours as needed for pain. She has been able to ambulate the hallways and to the restroom. She is eating and voiding without difficulty. She feels she is ready for discharge home today. She did use of some pain at the surgical sites that has been controlled medication. She is not currently experiencing any significant lower extremity radiculopathy or weakness bilaterally. Condition on day of discharge stable. Patient will be discharged home. Patient was cleared preoperatively f or surgery by Dr. Bullock. Patient currently denies any nausea, vomiting, fever, or chills. Patient is eating and voiding freely without difficulty. She has not had a bowel movement but is passing gas. Patient may shower Tegaderm dressing intact. Patient may remove Tegaderm dressing in 3 days and shower without a dressing at that time. Patient should keep Steri-Strips intact and allow them to fall off naturally. Patient should refrain from driving until at least after their first follow-up appointment in the office. Patient should avoid excessive bending, lifting, and twisting; no lifting greater than 10 pounds. Patient is a past medical history which includes hyperlipidemia, shortness of breath, heart arrhythmia, obesity and history of gastric bypass 20 years ago. MAPS has been reviewed today, 03/05/2019, with an Overall Overdose Risk Score of 190. An "Opiod Start Talking" Forn has been signed by the patient and myself in place in the patient's chart. A prescription has been written for Summer Shade 10 mg to 325 mg take 1 tablet every 4 hours as needed for pain, dispense #42. We discussed she should avoid anti-inflammatories with the next 6 weeks postoperatively. She may resume other previous he prescribed home medications but should avoid exercising Tylenol as she is already receiving acetaminophen in her Summer Shade 10 mg/325 mg prescription. Patient is also given a prescription for Senokot 1 tab twice a day as needed for constipation, dispense #60. Physical Exam on day of discharge: Patient is awake, alert, and oriented 3 Vital signs stable Good chest excursion with deep inspiration and expiration Abdomen soft nontender No signs or symptoms of DVT; no calf pain Good active range of motion bilateral lower extremities without difficulty Incision is clean, dry, and intact; no erythema, purulence, or signs of infection No significant pain with palpation of the surgical sites Tegaderm dressing and non-stick Telfa intact Procedures: L4-5 minimally invasive posterior lateral decompression and fusion with transforaminal lumbar interbody fusion revision L4-5 laminectomy Patient Condition at Discharge: Stable Plan - Discharge Summary Discharge Rx Participant: Yes New Discharge Prescriptions: New HYDROcodone/APAP 10-325MG [Summer Shade 10] 1 each PO Q4H PRN #42 tab PRN Reason: Pain Sennosides-Docusate Sodium [Senokot-S] 1 tab PO BID PRN #60 tablet PRN Reason: Constipation No Action Venlafaxine HCl [Effexor] 75 mg PO W/SUPPER Ranitidine HCl [Zantac] 150 mg PO W/SUPPER Multivitamins, Thera [Multivitamin (formulary)] 1 tab PO DAILY Montelukast [Singulair] 10 mg PO PC-SUPPER Cholecalciferol [Vitamin D3] 5,000 unit PO DAILY Cetirizine HCl [Zyrtec] 10 mg PO DAILY Beclomethasone Dipropionate [Qvar 80 mcg] 1 puff INHALATION RT-DAILY PRN PRN Reason: Shortness Of Breath Atenolol 100 mg PO W/SUPPER Albuterol Inhaler [Ventolin Hfa Inhaler] 2 puff INHALATION RT-QID PRN PRN Reason: Shortness Of Breath Naproxen Sodium [Aleve] 220 mg PO DAILY Iron Tablet 45 mg PO DAILY Farhat Back And Body 1 tab PO DAILY Acetaminophen [Tylenol Extra Strength] 1,000 mg PO TID Pravastatin Sodium [Pravachol] 20 mg PO W/SUPPER Discharge Medication List Albuterol Inhaler [Ventolin Hfa Inhaler] 2 puff INHALATION RT-QID PRN 05/09/18 [History] Atenolol 100 mg PO W/SUPPER 05/09/18 [History] Beclomethasone Dipropionate [Qvar 80 mcg] 1 puff INHALATION RT-DAILY PRN 05/09/18 [History] Cetirizine HCl [Zyrtec] 10 mg PO DAILY 05/09/18 [History] Cholecalciferol [Vitamin D3] 5,000 unit PO DAILY 05/09/18 [History] Montelukast [Singulair] 10 mg PO PC-SUPPER 05/09/18 [History] Multivitamins, Thera [Multivitamin (formulary)] 1 tab PO DAILY 05/09/18 [History] Ranitidine HCl [Zantac] 150 mg PO W/SUPPER 05/09/18 [History] Venlafaxine HCl [Effexor] 75 mg PO W/SUPPER 05/09/18 [History] Acetaminophen [Tylenol Extra Strength] 1,000 mg PO TID 02/26/19 [History] Farhat Back And Body 1 tab PO DAILY 02/26/19 [History] Iron Tablet 45 mg PO DAILY 02/26/19 [History] Naproxen Sodium [Aleve] 220 mg PO DAILY 02/26/19 [History] Pravastatin Sodium [Pravachol] 20 mg PO W/SUPPER 02/26/19 [History] HYDROcodone/APAP 10-325MG [Summer Shade 10] 1 each PO Q4H PRN #42 tab 03/05/19 [Rx] Sennosides-Docusate Sodium [Senokot-S] 1 tab PO BID PRN #60 tablet 03/05/19 [Rx] Follow up Appointment(s)/Referral(s): Nic Nguyen, GIANCARLO [PHYSICIAN SWAMPER] - 2 Weeks (Patient may follow-up with Nic Nguyen PA-C or Dr. Beto Barkley at [facility] in 2-3 weeks following discharge. ) Activity/Diet/Wound Care/Special Instructions: 1. Patient may shower with Tegaderm dressing intact. 2. Patient may remove Tegaderm dressing in 3 days and shower without a dressing at that time. 3. Patient should keep Steri-Strips intact and allow them to fall off naturally. 4. Patient should refrain from driving until at least after their first follow- up appointment in the office. 5. Patient should avoid excessive bending, twisting, and lifting; no lifting greater than 10 pounds 6. Take medications as prescribed 7. Do not soak in tub Discharge Disposition: HOME SELF-CARE
[2019-03-05] MEDS: SENNOSIDES-DOCUSATE SODIUM 1 EACH TAB PO SCH (10:21)
[2019-03-05] MEDS: CHOLECALCIFEROL 1,000 UNIT TAB PO SCH (10:21)
[2019-03-05] MEDS: FERROUS SULFATE 325 MG TAB PO SCH (10:21)
[2019-03-05] MEDS: MULTIVITAMINS, THERA 1 EACH TAB PO SCH (10:21)
[2019-03-05] MEDS: FLUTICASONE 110 MCG INHALER INHALATION SCH (11:08)
[2019-03-05 12:36] VITALS: BP 105/67; PULSE 71; TEMP 97.9
--- NOTE | 2019-03-05 13:23 | P.PN ---
Subjective No overnight events patient is clinically doing well did not move her bowel yet but does have good bowel sounds and has been passing gas. Constitutional: Denied any fatigue denied any fever. Cardio vascular: denied any chest pain, palpitations Gastrointestinal denied any nausea vomiting Pulmonary: Denied any shortness of breath cough Neurologic denied any new focal deficits All inpatient medications were reviewed and appropriate changes in these medications as dictated in the interval history and assessment and plan. Objective - Vital Signs Vital signs: Vital Signs Temp 97.9 F 03/05/19 12:17 Pulse 71 03/05/19 12:17 Resp 16 03/05/19 12:17 BP 105/67 03/05/19 12:17 Pulse Ox 99 03/05/19 12:17 Intake & Output 03/04/19 03/05/19 03/05/19 18:59 06:59 18:59 Intake Total 1100 2190 Output Total 1000 Balance 1100 1190 Intake: Intake, IV Titration 450 300 Amount Sodium Chloride 0.9% 1, 450 300 000 ml @ 75 mls/hr IV . [id number] PAUL Rx#:[id number] Oral 650 1890 Output: Urine 1000 Other: Voiding Method Toilet Toilet # Voids 3 2 - Exam PHYSICAL EXAMINATION: GENERAL: The patient is alert and oriented x3, not in any acute distress. Well developed, well nourished. HEENT: Pupils are round and equally reacting to light. EOMI. No scleral icterus. No conjunctival pallor. Normocephalic, atraumatic. No pharyngeal erythema. No thyromegaly. CARDIOVASCULAR: S1 and S2 present. No murmurs, rubs, or gallops. PULMONARY: Chest is clear to auscultation, no wheezing or crackles. ABDOMEN: Soft, nontender, nondistended, normoactive bowel sounds. No palpable organomegaly. MUSCULOSKELETAL: No joint swelling or deformity. EXTREMITIES: No cyanosis, clubbing, or pedal edema. NEUROLOGICAL: Gross neurological examination did not reveal any focal deficits. SKIN: No rashes. - Labs CBC & Chem 7: 03/04/19 07:34 03/04/19 07:34 Assessment and Plan Plan: -Hypertension patient blood pressure is fairly stable patient can be resumed on atenolol upon discharge -Lateral decompression of L4-L5 lumbar spine laminectomy: Pain management due to prophylaxis as per primary service and the continue physical therapy and occupational therapy and incentive spirometry -Asthma without any acute exacerbation patient was a former smoker -Gastroesophageal reflux disease -Hyperlipidemia Patient can be discharged from medical perspective
== END 2019-03-05 14:50 | disposition home or self-care (01) | DRG 454 ==
LOC: 2ORMAIN 11:54 → 3NMEDONC 17:12
PROVIDERS: ADMIT Orthopaedic Surgery Orthopaedic Surgery of the Spine; ATTEND Orthopaedic Surgery Orthopaedic Surgery of the Spine
PROC: 0SB20ZZ Excision of Lumbar Vertebral Disc, Open Approach (ICD-10-PCS; principal; 2019-03-03 13:00)
PROC: 0SG00AJ Fusion of Lumbar Vertebral Joint with Interbody Fusion Device, Posterior Approach, Anterior Column, Open Approach (ICD-10-PCS; principal; 2019-03-03 13:00)
PROC: 0SG0071 Fusion of Lumbar Vertebral Joint with Autologous Tissue Substitute, Posterior Approach, Posterior Column, Open Approach (ICD-10-PCS; principal; 2019-03-03 13:00)
DX: M47.26 Other spondylosis with radiculopathy, lumbar region (principal); Z68.41 Body mass index [BMI] 40.0-44.9, adult; M51.16 Intervertebral disc disorders with radiculopathy, lumbar region; E66.9 Obesity, unspecified; E78.5 Hyperlipidemia, unspecified; I10 Essential (primary) hypertension; J45.909 Unspecified asthma, uncomplicated; K21.9 Gastro-esophageal reflux disease without esophagitis; M41.56 Other secondary scoliosis, lumbar region; Z79.82 Long term (current) use of aspirin; Z87.891 Personal history of nicotine dependence; Z98.84 Bariatric surgery status; Z88.0 Allergy status to penicillin; Z91.041 Radiographic dye allergy status; Z88.2 Allergy status to sulfonamides
CPT/HCPCS: 72100; 80048; 81025; 85025

== ENCOUNTER → 2021-02-10 | Outpatient (CLI) | payer BC ==
--- NOTE | 2021-02-14 08:46 | MM ---
Reason for exam: screening (asymptomatic). Last mammogram was performed 2 years and 1 month ago. History: Family history of breast cancer in maternal cousin at age 39 and breast cancer in aunt. Took hormonal contraceptives for 7 years. Physical Findings: A clinical breast exam by your physician is recommended on an annual basis and results should be correlated with mammographic findings. MG Screening Mammo w CAD Bilateral CC and MLO view(s) were taken. Prior study comparison: January 01, 2019, bilateral MG screening mammo w CAD. April 09, 2015, bilateral MG screening mammo w CAD. There are scattered fibroglandular densities. No significant changes when compared with prior studies. ASSESSMENT: Benign, BI-RAD 2 RECOMMENDATION: Routine screening mammogram of both breasts in 1 year.
== END | disposition home or self-care (01) ==
LOC: RADMAMWWP 13:05
PROVIDERS: ATTEND Family Medicine
DX: Z12.31 Encounter for screening mammogram for malignant neoplasm of breast (principal)
CPT/HCPCS: 77067

== ENCOUNTER → 2022-02-27 | Outpatient (CLI) | payer BC ==
--- NOTE | 2022-02-27 13:37 | XR ---
EXAMINATION TYPE: XR chest 2V DATE OF EXAM: 02/27/2022 COMPARISON: Chest x-ray February 17, 2019 HISTORY: Presurgical study. TECHNIQUE: Frontal and lateral views of the chest are obtained. FINDINGS: There is no suspicious focal air space opacity, pleural effusion, or pneumothorax seen. T he cardiac silhouette size remains within normal limits. Straightening of spine on lateral view redem onstrated. Cholecystectomy clips on lateral view redemonstrated. IMPRESSION: No acute cardiopulmonary process. No significant change from prior.
[2022-02-27 14:04] LABS: INR 0.8 (<1.2); Partial Thromboplastin Time 22.8 sec (22.0-30.0); Prothrombin Time 9.4 sec (9.0-12.0)
[2022-02-27 18:44] LABS: HCT 41.1 % (37.2-46.3); HGB 13.1 g/dL (12.0-15.0); MCH 31.4 pg (27.0-32.0); MCHC 31.9 g/dL (32.0-37.0); MCV 98.6 fL (80.0-97.0); Mean Platelet Volume 9.6 fL (9.5-12.2); NRBC Per 100 WBC 0 /100 WBCS (0.0-0.0); Platelet Count 384 X 10*3/uL (140-440); RBC 4.17 X 10*6/uL (4.10-5.20); RDW 12.8 % (11.5-14.5); WBC 4.57 X 10*3/uL (4.50-10.00)
[2022-02-27 18:58] LABS: African American GFR (CKD) 102.3 (60.0-200.0); Anion Gap 13.3 mmol/L (10.00-18.00); BUN/Creat Ratio 14.69 Ratio (12.00-20.00); Blood Urea Nitrogen 11.3 mg/dL (9.0-27.0); Calcium 9.3 mg/dL (8.7-10.3); Carbon Dioxide 22.4 mmol/L (20.0-27.5); Non-African American GFR(CKD) 88.3 (60.0-200.0); Potassium 4.5 mmol/L (3.5-5.5)
[2022-02-28 01:59] LABS: Appearance,Urine Clear (Clear); Bilirubin,Urine Negative (Negative); Blood,Urine Moderate (Negative); Color,Urine Yellow (Yellow); Ketones,Urine Negative (Negative); Nitrite,Urine Negative (Negative); PH, Urine 6.5 (5.0-8.0); Specific Gravity,Urine 1.003 (1.001-1.030); Urobilinogen,Urine 0.2 (0.2,1.0)
[2022-02-28 02:10] LABS: Bacteria,Urine 3+ /HPF (None Seen)
== END | disposition home or self-care (01) ==
LOC: LABPAT 12:41
PROVIDERS: ATTEND Orthopaedic Surgery Orthopaedic Surgery of the Spine
DX: Z01.812 Encounter for preprocedural laboratory examination (principal); M48.061 Spinal stenosis, lumbar region without neurogenic claudication
CPT/HCPCS: 36415; 71046; 80048; 81001; 85027; 85610; 85730; 87070

== ENCOUNTER 2022-03-08 07:18 | Inpatient (IN) | payer BC ==
[2022-03-03 14:16] VITALS: BMI 43.9
[~2022-03-08 07:18] MED LIST changes: -BACITRACIN 50,000 UNIT, POLYMYXIN B 500,000 UNIT in SODIUM CHLORIDE 0.9% IRRIGATIO 1,00... IRRIGATION ONE; +DEXAMETHASONE SOD PHOSPHATE 4 MG/ML 1 ML VIAL IV ONE; -LIDOCAINE 1% 20 ML VIAL (10MG/ML) FOR IV START INTRADERMA PRN; +ceFAZolin 1,000 MG in SODIUM CHLORIDE 0.9% IRRIGATIO 1,000 ML IRRIGATION PRN; -ceFAZolin IN SWFI 2 GM/20 ML SYRINGE IVP ONE; +fentaNYL (PF) 50 MCG/ML 2 ML AMP IV PRN
[2022-03-08] MEDS: LACTATED RINGERS 1,000 ML IV SCH (07:38)
[2022-03-08 08:00] LABS: Glucose,Whole Blood 88 mg/dL (70-110)
[2022-03-08] MEDS ORDERED: ROCURONIUM 10 MG/ML (5 ML VIAL) IV ONE (08:25)
[2022-03-08] MEDS ORDERED: PROPOFOL 10 MG/ML 20 ML VIAL IV ONE (08:25)
[2022-03-08] MEDS ORDERED: NEOSTIGMINE 1 MG/ML 10 ML VIAL ONE (08:25)
[2022-03-08] MEDS ORDERED: GLYCOPYRROLATE 0.2 MG/ML 2 ML VIAL ONE (08:25)
[2022-03-08] MEDS ORDERED: SUCCINYLCHOLINE CHLORIDE 200 MG/10 ML VIAL IV ONE (08:25)
[2022-03-08] MEDS ORDERED: KETAMINE 10 MG/ML 20 ML VIAL ONE (08:25)
[2022-03-08] MEDS ORDERED: SODIUM CHLORIDE 0.9% IRRIG 1,000 ML BTL IRRIGATION ONE (08:25)
[2022-03-08] MEDS ORDERED: HYDROmorphone (PF) 1 MG/ML ONE (08:25)
[2022-03-08] MEDS ORDERED: PHENYLEPHRINE-0.9% NACL SYG 1,000 MCG/10 ML SYRINGE ONE (08:25)
[2022-03-08] MEDS ORDERED: fentaNYL (PF) 50 MCG/ML 2 ML AMP ONE (08:25)
[2022-03-08] MEDS ORDERED: MIDAZOLAM 2 MG/2 ML VIAL ONE (08:25)
[2022-03-08] MEDS ORDERED: HEPARIN SODIUM,PORCINE 10,000 UNIT/ML 1 ML VIAL ONE (08:25)
[2022-03-08] MEDS ORDERED: BUPIVACAIN-EPI 0.25%-1:200,000 30 ML VIAL SQ ONE (09:09)
[2022-03-08] MEDS ORDERED: GELATIN SPONGE,ABSORB (LARGE) 1 EACH SPONGE TOPICAL ONE (09:30)
[2022-03-08] MEDS ORDERED: THROMBIN (BOVINE) 5,000 UNIT VIAL TOPICAL ONE (09:30)
[2022-03-08] MEDS ORDERED: LACTATED RINGERS 1,000 ML IV ONE ×2 (11:07→13:08)
[2022-03-08] MEDS ORDERED: ONDANSETRON 4 MG/2 ML VIAL IVP PRN (13:08)
[2022-03-08] MEDS ORDERED: BENZOCAINE/MENTHOL LOZENG 1 EACH LOZENGE MUCOUS MEM PRN (13:08)
[2022-03-08] MEDS ORDERED: MAGNESIUM HYDROXIDE 2,400 MG/10 ML CUP PO PRN ×2 (13:08)
[2022-03-08] MEDS ORDERED: ALBUTEROL NEBULIZED 2.5 MG/3 ML INHALATION PRN (13:11)
[2022-03-08] MEDS ORDERED: FLUTICASONE 110 MCG INHALER INHALATION PRN (13:11)
--- NOTE | 2022-03-08 13:19 | XR ---
Fluoroscopy History: LUMBAR FUSION MIN INV LUMBAR FUSION, DR JACINTO, 20 SEC FLUORO. IMAGES SCANNED.
--- NOTE | 2022-03-08 13:28 | P.OP ---
Date of Procedure: 03/08/22 Preoperative Diagnosis: Degenerative scoliosis, adjacent level degeneration L2-3 L3 4, spinal stenosis L2-3 L3 4, facet arthropathy, radiculopathy, neurogenic claudication, history of prior decompression and fusion L4 5 with retained hardware Postoperative Diagnosis: Same with findings of solid fusion at L4 5 Anesthesia: GETA Pathology: none sent Condition: stable Disposition: PACU Description of Procedure: DESCRIPTION OF PROCEDURE(S): BRIEF OPERATIVE NOTE Preoperative Diagnosis:Degenerative scoliosis, adjacent level degeneration L2-3 L3 4, spinal stenosis L2-3 L3 4, facet arthropathy, radiculopathy, neurogenic claudication, history of prior decompression and fusion L4 5 with retained hardware Postoperative Diagnosis: Same, with findings of solid fusion L4 5 Procedure: Laminectomy and decompression L2-[address] navigation aided Minimally invasive Posterior lateral decompression and facet fusion L2-3 L3 4 Minimally invasive Transforaminal lumbar interbody fusion for a 360 fusion L2-3 L3 4 Discectomy for decompression L2-3 L3 4 Placement of interbody graft L2-3 L3 4 Use of computer navigation for fusion L2-3 and 4 Local autogenous bone grafting Aspiration of bone marrow from the vertebral body pedicle at L2 on the right Use of bone graft extenders Removal of deep hardware at L4 and L5 pedicle screws and rods with revision of the pedicle screws with larger screws at L4 and L5 bilaterally Exploration of fusion L4 5 with findings of solid fusion Surgeon: Dr. Barkley Magnetic Resonance Imaging Director: Nic PERRY who is present throughout the entire the case persistence during positioning, dissection, exposure, visualization, and all crucial elements of the case as well as closure. Anesthesia: General anesthesia per Estimated blood loss: Approximately 150 mL Complications: None apparent Components implanted: K2M minimally invasive [place] pedicle screw system withscrews measuring 5.5 mm and 6.5 mm and 7.5 mm in diameter to rods one [place] interbody cage and 1 peek interbody cage with 10 mL of osteo amp bio4 bone graft substitute and 30 mL of the BX bone fibers to supplement the local autogenous bone graft and bone marrow aspirate Disposition: To recovery room in good stable condition. OPERATIVE INDICATIONS The patient is well known to our service and has undergone prior surgery with us almost 4 years ago. In the past she had a decompression and fusion which was done minimally invasive at L4 5 for her spinal stenosis and lower extremity radiculopathy. Patient did quite well with this and had several years of good outcome however over the past several months and almost a year she's been having worsening pain at her lower back. His has been getting more severe for her over the past several months and she was found have adjacent level degeneration with degenerative scoliosis and stenosis above her prior fusion level at L2-3 and L3 4. This correlated well with her low back and lower extremity symptoms. She said her prior symptoms were somewhat different than her current symptoms and she was very happy with her prior surgery. The patient has had significant worsening over the past several months. Over the past few months the patient had pain at their back and their lower extremities. The patient is having severe radicular symptoms at their lower extremity with weakness. The patient is having significant pain in their back. They are unable to obtain any comfort. We did aggressive conservative treatment with medications therapy and interventional pain management however thery were not having any relief. The patient has been through conservative treatment. We discussed various treatment options including surgery, and the patient wishes to proceed with surgery. We discussed the possible need to remove her old hardware and replace the hardware in order to gain appropriate construct. We discussed the risk, patient's alternatives and benefits of surgery including but not limited to, risk of bleeding risk of infection, risk of need for further surgery, risk of decreased, loss of motion, muscle function, malunion nonunion, hardware failure, nerve damage, paralysis, heart attack, blindness and . They understood issues with the current pandemic and the possibility of exposure. OPERATIVE SUMMARY After discussing all the risks, patient alternatives and benefits at length, the patient elected to proceed with surgical intervention, signed informed consent, and presented for their procedure. The patient was seen and examined in the preoperative holding area and the surgical site was marked. The patient was given antibiotics and brought to the operating room. The patient was sedated and intubated by anesthesia in standard fashion. The patient was positioned on to the operating room table in a prone position on the appropriate frame which was well-padded and well molded. We were careful to pad any bony prominences and pressure points. We were careful to maintain the patient's cervical spine and good neutral alignment and position throughout. The patient was prepped and draped in a normal standard fashion. An appropriate timeout and keystone protocol performed. We were able to proceed with the surgery. The local wound area was infiltrated with local anesthetic. Over the right iliac crest I was able to make small stab incisions and establish a guidepin screw fixation to the iliac crest 2. I was able place the computer referencing device over the guidepins to establish an appropriate reference point for the Ziem CT navigation. We then were able to place patient in an appropriate drape and do a navigation spin for visualization and 3-D reconstruction of the lumbar spine. I was able utilize C-arm guidance and navigation to establish appropriate position over the pedicles bilaterally at the appropriate levels at L2 and L3 . With the appropriate levels confirmed was able to make small incisions over the appropriate pedicle sites bilaterally. I made incisions over L2-3 4 and 5 bilaterally utilizing her prior incision on both sides. Utilizing the computer navigation device I was able to establish bony landmarks at the right iliac crest for a bony reference point for the navigation device. I was able to establish a Jamshidi needle over the lateral aspect of the pedicle and advanced the trocar into the pedicle being careful not to breech superiorly inferiorly medially or laterally using computer navigation device. Position was confirmed regularly with AP and lateral images on C-arm and with the computer navigation device at the appropriate levels bilaterally. I was able to establish the trocar into the pedicle appropriately into the posterior aspect of the vertebral body bilaterally at the appropriate levels. This was done at each of the pedicle positions and each of the vertebrae at the new areas of L2 and L3 bilaterally. At the superior vertebrae I was able to take approximately 25 mL of bone aspiration for use later in the case to supplement the allograft and autograft bone. I was able place the guidewire into the trocar and into the vertebral body appropriately under C-arm guidance. Dissection was taken down over the wire to the appropriate starting position for the screw placed. The appropriate length screw was chosen, threaded over the guidewire and screwed appropriately into the pedicle and vertebral body under C- arm guidance in excellent alignment and position with good bony purchase. This is done at each of the screw sites at the appropriate levels at L2 and L3 bilaterally. At this point I was also able to expose the screws bilaterally at L4 and L5. I was able to dissect over the screw heads and expose the mari as well. With the screws exposed I needed to remove the mari in order to place the appropriate retraction fixation. I was able to remove the Screws remove the mari was examined and found to be in total I checked the screws and it was found to be solid with solid fusion at L4 5. There is no evidence of motion at L4 5. I checked the screws and had good fixation however I had some concern in terms of locking Screws again to the already used [place] multiaxial heads and I felt that replacing the screws would be appropriate to ensure appropriate construct fixation at L4 and 5 to the extended fusion at L2 and L3. I remove the screws bilaterally at L4 and L5 their examined and found be in total. The screw holes were elevated and well maintained. There is copiously irrigated and suctioned dry. I then tapped the screw holes bilaterally at L4 and L5 with a 7.5 mm tap and placed 7.5 x 50 mm screws at L4 and L5 bilaterally we had excellent bony purchase and fixation. All the screws were tested and had acceptable testing on neuro monitoring. With the screws intact I extended the incision to connect the screw hole sites on the most symptomatic side on the left. I dissected down to establish access over the pars and lamina to the base of the spinous process. I was able to expose the facet joint. I started first at L3 4 and then moved up to L2-3 The capsule the facet was taken down and showed some facet arthrosis at the joint. I was able to use a combination of curettes and Kerrison rongeurs and a high- speed drill to take down the facet joint and do a facetectomy. I was able get excellent foraminal decompression and central decompression with undermining across midline to perform a laminectomy centrally and contralaterally. I was able get good central decompression. The ligamentum flavum was taken down to further decompress centrally and at bilateral neural foramen. I was able to expose the disc space and visualize the traversing nerve root. Note was made of some disc protrusion and disc herniation that was abutting the traversing nerve root at the level causing further compression of the nerve root. I was able to establish a annulotomy at the appropriate level protecting soft tissue and neural structures. Note was made of some severe disc desiccation at the disc, as well as near-complete disc height loss. I performed a complete discectomy with accommodation of curettes and rasps and scrapers. I was able get good endplate preparation at the disc space. I sized for the appropriate size interbody spacer protecting the soft tissue and neural structures. The wound was copiously irrigated and suctioned dry. There is no evidence of any dural tear or leak. I was able to pack the disc space with local autogenous bone graft as well as a small amount of bone graft which was also placed into the interbody cage itself. Protecting the soft tissue structures and neural structures I was able place the interbody cage in good alignment and good position with good fit and fill at the interbody space. This was done at L34 and then at L2-3 Position was confirmed with C-arm guidance. Good hemostasis maintained. There is no evidence of any dural tear or leak. The wound was irrigated and suctioned dry. With the hardware intact, intraoperative C-arm imaging was again taken which s howed good alignment and position of the hardware at the appropriate levels at L2-3 4 and 5. We were then able to measure, contour and place the rods and appropriate hardware bilaterally. I was able to place capcrews, tighten them down, and torque them with the torque screwdriver appropriately. With this intact I was able to place the local autogenous bone graft with additional bone graft enhancer as necessary into the posterior lateral gutters over the decorticated transverse processes and facet joints on the contralateral side. The remainder of the bone graft was placed over the facet joint on the contralateral side after taking down the facet joint capsule. With the bone graft intact, a stable construct, and good decompression at the appropriate levels, we were able to proceed with closure. Good hemostasis was maintained. There is no evidence of dural tear or leak. The fascia was closed for a watertight closure. he subcuticular tissue was closed with absorbable suture. T he wound was cleaned and dried and dressed with the appropriate dressing. The drapes were broken down. The patient was gently rolled back onto their hospital bed being careful to maintain their cervical spine and good neutral alignment and position. They were woken up by anesthesia, extubated, and brought to the recovery room in good stable condition. The patient will be admitted to the hospital for appropriate postoperative care, medical management and monitoring. We will continue to follow them closely about the postoperative course.
[2022-03-08] MEDS: HYDROmorphone 0.5 MG/0.5 ML SYRINGE IVP PRN ×2 (13:48→19:09)
[2022-03-08] MEDS ORDERED: HYDROmorphone 0.5 MG/0.5 ML SYRINGE IVP ONE (13:57)
[2022-03-08] MEDS: SODIUM CHLORIDE 0.9% 1,000 ML IV SCH (14:35)
[2022-03-08] MEDS: atenoloL 50 MG TAB PO SCH (15:54)
[2022-03-08] MEDS: HYDROmorphone 1 MG/ML 1 ML SYRINGE IVP PRN ×2 (15:54→23:00)
[2022-03-08] MEDS: VENLAFAXINE HCL 75 MG TAB PO SCH (15:55)
[2022-03-08] MEDS: ceFAZolin 3 GM in SODIUM CHLORIDE 0.9% 100 ML IVPB SCH (15:55)
[2022-03-08] MEDS: PRAVASTATIN SODIUM 20 MG TAB PO SCH (15:55)
[2022-03-08] MEDS: FAMOTIDINE 20 MG TAB PO SCH (15:55)
[2022-03-08] MEDS: diazePAM 5 MG TAB PO PRN (15:58)
[2022-03-08] MEDS: HYDROcodone/APAP 5-325MG 1 EACH TAB PO PRN ×2 (18:15→22:15)
[2022-03-08] MEDS: CYCLOBENZAPRINE 10 MG TAB PO PRN (19:09)
[2022-03-09] MEDS: ceFAZolin 3 GM in SODIUM CHLORIDE 0.9% 100 ML IVPB SCH (00:30)
[2022-03-09] MEDS: CYCLOBENZAPRINE 10 MG TAB PO PRN ×3 (02:24→17:36)
[2022-03-09] MEDS: HYDROcodone/APAP 5-325MG 1 EACH TAB PO PRN ×5 (02:25→21:40)
[2022-03-09] MEDS: SODIUM CHLORIDE 0.9% 1,000 ML IV SCH ×2 (02:45→15:38)
[2022-03-09] MEDS: HYDROmorphone 0.5 MG/0.5 ML SYRINGE IVP PRN ×6 (03:29→23:09)
[2022-03-09] MEDS: LACTATED RINGERS 1,000 ML IV SCH (05:58)
[2022-03-09] MEDS: SENNOSIDES-DOCUSATE SODIUM 1 EACH TAB PO SCH (07:48)
[2022-03-09] MEDS: LORATADINE 10 MG TAB PO SCH (07:48)
[2022-03-09] MEDS: MULTIVITAMINS, THERA 1 EACH TAB PO SCH (07:48)
[2022-03-09] MEDS: diazePAM 5 MG TAB PO PRN ×3 (07:48→20:09)
[2022-03-09] MEDS: CHOLECALCIFEROL 125 MCG (5000 IU) TABLET PO SCH (07:48)
[2022-03-09 08:05] LABS: Basophils % (A) 0 %; Eosinophils % (A) 0 %; HCT 42.3 % (34.0-46.0); Lymphocytes # (A) 1.6 k/uL (1.0-4.8); Lymphocytes % (A) 14 %; MCH 32.8 pg (25.0-35.0); MCHC 33.1 g/dL (31.0-37.0); MCV 99.2 fL (80.0-100.0); Mean Platelet Volume 8.5; Monocytes # (A) 0.3 k/uL (0-1.0); Monocytes % (A) 3 %; Neutrophils # (A) 9.3 k/uL (1.3-7.7); Neutrophils % (A) 82 %; Platelet Count 335 k/uL (150-450); RBC 4.26 m/uL (3.80-5.40); RDW 13.8 % (11.5-15.5); WBC 11.3 k/uL (3.8-10.6)
[2022-03-09 08:06] LABS: African American GFR (CKD) >90 (>60 ml/min/1.73 sqM); Anion Gap 6 mmol/L; Blood Urea Nitrogen 8 mg/dL (7-17); Calcium 8.9 mg/dL (8.4-10.2); Carbon Dioxide 29 mmol/L (22-30); Chloride 98 mmol/L (98-107); Glucose 122 mg/dL (74-99); Non-African American GFR(CKD) >90 (>60 ml/min/1.73 sqM); Sodium 133 mmol/L (137-145)
--- NOTE | 2022-03-09 10:43 | P.PN ---
Progress Note - Text Progress Note Date: 03/09/22 Postoperative day #1 Patient is seen and examined today at bedside. The patient has some pain around the surgical site as expected. Pain is being controlled with medication. She is sitting up in bed and was able to get up yesterday. Her Montez was just discontinued. She denies any problems in her lower extremities. She says her legs are feeling good. Her primary pain is spasm at her back. Physical Exam Afebrile with stable vital signs Abdomen is soft nontender. Chest has good excursion deep and space expiration The incision site is clean dry and intact. No erythema there is no purulence. Extremities have not had neurologic change from prior to surgery. She has sustained dorsal flexion plantar flexion and EHL. She is able to lift her legs up independently. Calves and thighs were soft nontender without evidence of DVT. Assessment/Plan Postoperative day #1 status post minimally invasive decompression fusion L2 3 L3 4 with extension of her prior fusion from L4 5 Patient is progressing as expected from the surgery. With multilevel lumbar fusion and the fact that this is a revision she has significant pain as expected and would require inpatient admission as she is unable to mobilize and ambulate independently currently. I think she will make good progress over the next day or 2 where she will be able to start to mobilize more independently. I would still anticipate her being able to be discharged home potentially on Sunday if her pain is controlled and her mobility improves. We will continue to increase the patient's mobilization with therapy. We will continue pain control with oral or IV medications. We'll continue to follow patient closely.
[2022-03-09] MEDS: VENLAFAXINE HCL 75 MG TAB PO SCH (17:36)
[2022-03-09] MEDS: atenoloL 50 MG TAB PO SCH (17:36)
[2022-03-09] MEDS: PRAVASTATIN SODIUM 20 MG TAB PO SCH (17:36)
[2022-03-09] MEDS: FAMOTIDINE 20 MG TAB PO SCH (17:37)
[2022-03-10] MEDS: HYDROcodone/APAP 5-325MG 1 EACH TAB PO PRN ×3 (01:35→12:30)
[2022-03-10] MEDS: CYCLOBENZAPRINE 10 MG TAB PO PRN ×3 (01:35→15:04)
[2022-03-10] MEDS: SODIUM CHLORIDE 0.9% 1,000 ML IV SCH ×2 (04:14→16:51)
[2022-03-10] MEDS: HYDROmorphone 0.5 MG/0.5 ML SYRINGE IVP PRN ×2 (05:11→10:12)
[2022-03-10] MEDS: LACTATED RINGERS 1,000 ML IV SCH (06:06)
[2022-03-10] MEDS: LORATADINE 10 MG TAB PO SCH (07:10)
[2022-03-10] MEDS: MULTIVITAMINS, THERA 1 EACH TAB PO SCH (07:10)
[2022-03-10] MEDS: SENNOSIDES-DOCUSATE SODIUM 1 EACH TAB PO SCH (07:10)
[2022-03-10] MEDS: CHOLECALCIFEROL 125 MCG (5000 IU) TABLET PO SCH (07:10)
--- NOTE | 2022-03-10 08:52 | P.PN ---
Progress Note - Text Progress Note Date: 03/10/22 Orthopedic Spine History of present illness: Patient is a pleasant 51-year-old female who is seen and examined at the bedside following posterior lateral decompression and fusion performed Sunday. Patient states they are doing okay post operatively. She continues to have significant pain at her surgical sites at her lumbar spine. She continues to require IV Dilaudid and oral [place] for pain control. Her pain has been adequacy controlled with these medications. She is experiencing spasms in her lumbar spine which has been controlled with cyclobenzaprine. She has been able to ambulate without the assistance of a walker. She is working with physical therapy. She has been eating and voiding without difficulty. She does have some abdominal discomfort which we discussed could be due to positioning during surgical intervention. She does feel she has had some progression as compared to yesterday morning. Currently does not complain of nausea, vomiting, fever, or chills. If she is able to wean off IV medications, she is hoping to be discharged home in the next 1-2 days. She does have a walker at home if needed. Physical Exam Lumbar Fusion: Status post surgical day number 2 Patient is awake, alert, and oriented 3; patient currently sitting in a bedside chair Vital signs stable Good chest excursion with deep inspiration and expiration Dorsiflexion, plantarflexion, and extensor hallucis longus positive sustained bilaterally No signs or symptoms of DVT; no calf pain; pneumatic cuffs not currently intact bilateral lower extremities Silver dressings are clean, dry, and intact over the lumbar spine and right i liac crest; no erythema, purulence, or signs of infection Neurovascularly intact bilaterally lower extremities Assessment: Status post L2-3 and L3-4 minimally invasive posterior lateral decompression and fusion with transforaminal lumbar interbody fusion with removal and revision of hardware at L4-5 Low back pain Lumbar adjacent level degenerative disc disease L2-3 and L3-4 spinal stenosis Lumbar facet arthropathy Lower extremity radiculopathy Degenerative scoliosis Hyperlipidemia History of heart arrhythmia/palpitations Plan: 1. Ambulate as tolerated; work with Physical Therapy to increase mobilization 2. Continue pain control with IV and oral medications; will plan to begin weaning the patient off of IV narcotic medication in anticipation for discharge home in the next 1-2 days MAPS has been reviewed today, 03/10/2022, with an Overall Overdose Risk Score of 230. An "Opiod Start Talking" Form has been signed and placed in the patient's chart. A prescription has been written for [place] 5 mg/325 mg 1 every 4 hours as needed for acute pain, dispensed #42. Patient is also given prescription for cyclobenzaprine 10 mg one tab 3 times a day as needed for muscle spasm, dispensed #60 and Senokot-S 1 twice a day as needed for constipation, dispensed #60. These medications are sent to the [facility] pharmacy located within [facility] per request of the patient. 3. Dressings to remain intact; patient may shower with dressings intact 4. We will continue to follow the patient closely; patient continues to have difficulty with significant pain at her lumbar spine postoperatively.. She has been working with physical therapy and is progressing. She has been requiring IV and oral medications for pain control. I do not feel the patient is ready for discharge home. Patient will continue to remain in the hospital until her symptoms improve and her pain is better controlled. We will plan to have the patient be admitted to in patient status during her admission. Depending on her progress we patient may plan to be discharged home tomorrow, 03/11/2022, or 03/12/2022 5. Patient can follow-up with iNc Nguyen PA-C or Dr. Beto Barkley at [facility] in 2-3 weeks following discharge
[2022-03-10] MEDS: HYDROcodone/APAP 7.5-325MG 1 EACH TAB PO PRN ×2 (16:10→19:30)
[2022-03-10] MEDS: diazePAM 5 MG TAB PO PRN (16:15)
[2022-03-10] MEDS: PRAVASTATIN SODIUM 20 MG TAB PO SCH (16:57)
[2022-03-10] MEDS: FAMOTIDINE 20 MG TAB PO SCH (16:57)
[2022-03-10] MEDS: atenoloL 50 MG TAB PO SCH (16:57)
[2022-03-10] MEDS: VENLAFAXINE HCL 75 MG TAB PO SCH (16:57)
[2022-03-11] MEDS: diazePAM 5 MG TAB PO PRN (00:35)
[2022-03-11] MEDS: HYDROcodone/APAP 7.5-325MG 1 EACH TAB PO PRN ×6 (00:35→20:34)
[2022-03-11] MEDS: SODIUM CHLORIDE 0.9% 1,000 ML IV SCH ×2 (08:21→23:26)
[2022-03-11] MEDS: LACTATED RINGERS 1,000 ML IV SCH (08:21)
[2022-03-11] MEDS: SENNOSIDES-DOCUSATE SODIUM 1 EACH TAB PO SCH (08:22)
[2022-03-11] MEDS: LORATADINE 10 MG TAB PO SCH (08:22)
[2022-03-11] MEDS: MULTIVITAMINS, THERA 1 EACH TAB PO SCH (08:22)
[2022-03-11] MEDS: CHOLECALCIFEROL 125 MCG (5000 IU) TABLET PO SCH (08:22)
[2022-03-11] MEDS ORDERED: bisacodyL 10 MG SUPP RECTAL PRN (08:39)
--- NOTE | 2022-03-11 08:47 | P.DS ---
Providers Date of admission: 03/09/22 13:07 Attending physician: Santi Barkley Primary care physician: [facility] Course: The patient presented on the day of admission as per their operative note. She has a history of lumbar issues and has undergone prior surgery in the past. She had adjacent level degeneration with degenerative scoliosis stenosis and lower extremity radiculopathy. She underwent her decompression and fusion at L2-3 and L3 4 to extend her prior fusion from L4 5 as per her operative note. She says her legs are doing very well. She is happy with how her legs feel. She says her back pain is improving steadily. Her mobilization is improving greatly. She still denies any significant flatus and has not had yet had a bowel movement. She says she is tolerating her diet well. Physical Exam The incision site is clean dry and intact. There is no erythema no drainage. There is no purulence no evidence of infection. There is no active drainage there is no safe and swelling. The wound site is clear and recovered with what dressing. Abdomen soft and nontender. No rebound or rigidity. Her abdomen is soft Chest has good excursion with deep inspiration and expiration. The patient has active and passive range of motion intact at the upper and lower extremities. There is no acute change in neurologic status. She has sustained dorsal to plantar flexion and EHL after bilateral lower extremities. Hospital Course Postoperative day #3 status post minimally invasive decompression and fusion L2- 3 L3 4 with extension of fusion from L4 5 for her degenerative scoliosis with adjacent level degeneration and stenosis and lower extremity radiculopathy. The patient says she is doing well postoperatively and is happy with results it particularly in terms of her legs. She says her back pain is improving well. The patient has been making good progress postoperatively. They have completed the prophylactic antibiotics without any signs or symptoms of infection. The patient has been able to advance their diet, and is tolerating diet adequately. The pain was initially controlled with IV medications and is now controlled appropriately with oral medications. The patient has been able to increase their mobilization. The patient has not yet had a bowel movement and has minimal flatus. We'll see if we get her belly going a little bit further today before she is able to go home. If she is not doing well in terms of her abdomen that we may have to keep her another night to monitor this. However if she is making good progress in terms of passing gas and potentially having a bowel movement that I think it is okay for her to be discharged home today. If she is doing well in terms of her bowels, and I think that she will be okay for discharge home later today. I discussed this with her and answered her questions to the best of our ability in a language that they can understand and they are agreeable with the plan. They will follow up as directed. Plan - Discharge Summary Discharge Rx Participant: Yes New Discharge Prescriptions: New HYDROcodone/APAP 5-325MG [Chowchilla 5] 1 each PO Q4HR PRN #42 tab PRN Reason: Pain Sennosides-Docusate Sodium [Senokot-S] 1 tab PO BID PRN #60 tablet PRN Reason: Constipation Cyclobenzaprine [Flexeril] 10 mg PO TID PRN #60 tab PRN Reason: Muscle Spasm HYDROcodone/APAP 7.5-325MG [Chowchilla 7.5-325] 1 tab PO Q6HR PRN 7 Days #28 tab PRN Reason: Pain No Action Venlafaxine HCl [Effexor] 75 mg PO W/SUPPER Ranitidine HCl [Zantac] 150 mg PO W/SUPPER Multivitamins, Thera [Multivitamin (formulary)] 1 tab PO DAILY Montelukast [Singulair] 10 mg PO PC-SUPPER Cholecalciferol [Vitamin D3] 125 mcg PO DAILY Cetirizine HCl [Zyrtec] 10 mg PO DAILY Beclomethasone Dipropionate [Qvar 80 mcg] 1 puff INHALATION RT-DAILY PRN PRN Reason: Shortness Of Breath atenoloL [Atenolol] 100 mg PO W/SUPPER Albuterol Inhaler [Ventolin Hfa Inhaler] 2 puff INHALATION RT-QID PRN PRN Reason: Shortness Of Breath Pravastatin Sodium [Pravachol] 20 mg PO W/SUPPER HYDROcodone/APAP 5-325MG [Chowchilla 5-325] 1 tab PO TID PRN PRN Reason: Pain Acetaminophen [Tylenol Arthritis] 650 mg PO Q6H PRN PRN Reason: Pain Cyclobenzaprine [Flexeril] 10 mg PO TID PRN PRN Reason: Pain Discharge Medication List Albuterol Inhaler [Ventolin Hfa Inhaler] 2 puff INHALATION RT-QID PRN 05/09/18 [History] Beclomethasone Dipropionate [Qvar 80 mcg] 1 puff INHALATION RT-DAILY PRN 05/09/18 [History] Cetirizine HCl [Zyrtec] 10 mg PO DAILY 05/09/18 [History] Cholecalciferol [Vitamin D3] 125 mcg PO DAILY 05/09/18 [History] Montelukast [Singulair] 10 mg PO PC-SUPPER 05/09/18 [History] Multivitamins, Thera [Multivitamin (formulary)] 1 tab PO DAILY 05/09/18 [History] Ranitidine HCl [Zantac] 150 mg PO W/SUPPER 05/09/18 [History] Venlafaxine HCl [Effexor] 75 mg PO W/SUPPER 05/09/18 [History] atenoloL [Atenolol] 100 mg PO W/SUPPER 05/09/18 [History] Pravastatin Sodium [Pravachol] 20 mg PO W/SUPPER 02/26/19 [History] Acetaminophen [Tylenol Arthritis] 650 mg PO Q6H PRN 03/03/22 [History] Cyclobenzaprine [Flexeril] 10 mg PO TID PRN 03/03/22 [History] HYDROcodone/APAP 5-325MG [Chowchilla 5-325] 1 tab PO TID PRN 03/03/22 [History] Cyclobenzaprine [Flexeril] 10 mg PO TID PRN #60 tab 03/10/22 [Rx] HYDROcodone/APAP 5-325MG [Chowchilla 5] 1 each PO Q4HR PRN #42 tab 03/10/22 [Rx] Sennosides-Docusate Sodium [Senokot-S] 1 tab PO BID PRN #60 tablet 03/10/22 [Rx] HYDROcodone/APAP 7.5-325MG [Chowchilla 7.5-325] 1 tab PO Q6HR PRN 7 Days #28 tab 03/11/22 [Rx] Follow up Appointment(s)/Referral(s): Santi Barkley DO [Doctor of Osteopathic Medicine] - 2 Weeks Activity/Diet/Wound Care/Special Instructions: Keep site clean. May shower with waterproof Tegaderm intact. Do not soak in a tub. After 72 hours postoperatively, patient May remove dressing and then may shower with area uncovered. Leave glue intact and allow it to fray off on its own. May ambulate as tolerated. Avoid heavy or rigorous activity. No repetitive bending twisting or lifting. No overhead work. Take medications as prescribed Patient may utilize a walker ambulation as needed. Discharge Disposition: HOME SELF-CARE
[2022-03-11] MEDS: polyethylene glycoL 3350 17 GM POWD.PACK PO SCH (10:46)
[2022-03-11] MEDS: CYCLOBENZAPRINE 10 MG TAB PO PRN (12:35)
[2022-03-11] MEDS: VENLAFAXINE HCL 75 MG TAB PO SCH (17:48)
[2022-03-11] MEDS: PRAVASTATIN SODIUM 20 MG TAB PO SCH (17:48)
[2022-03-11] MEDS: atenoloL 50 MG TAB PO SCH (17:48)
[2022-03-11] MEDS: FAMOTIDINE 20 MG TAB PO SCH (17:48)
[2022-03-12] MEDS: HYDROcodone/APAP 7.5-325MG 1 EACH TAB PO PRN ×4 (00:43→15:45)
[2022-03-12] MEDS: diazePAM 5 MG TAB PO PRN (00:44)
[2022-03-12] MEDS: LACTATED RINGERS 1,000 ML IV SCH (08:14)
[2022-03-12 08:30] VITALS: RESP 17
[2022-03-12] MEDS: polyethylene glycoL 3350 17 GM POWD.PACK PO SCH (08:35)
[2022-03-12] MEDS: MULTIVITAMINS, THERA 1 EACH TAB PO SCH (08:35)
[2022-03-12] MEDS: SENNOSIDES-DOCUSATE SODIUM 1 EACH TAB PO SCH (08:35)
[2022-03-12] MEDS: CHOLECALCIFEROL 125 MCG (5000 IU) TABLET PO SCH (08:35)
[2022-03-12] MEDS: LORATADINE 10 MG TAB PO SCH (08:35)
--- NOTE | 2022-03-12 10:15 | P.PN ---
Progress Note - Text Progress Note Date: 03/12/22 Orthopedic Spine History of present illness: Patient is a pleasant 51-year-old female who is seen and examined at the bedside following posterior lateral decompression and fusion performed Sunday. Patient states she has significantly improved over the past couple days post operatively. She continues to have some pain at the surgical sites in her lumbar spine but her pain has been better controlled. She has been able to discontinue IV Dilaudid. She does continue with oral Gary for pain control. Her pain has been adequacy controlled with these medications. She is experiencing spasms in her lumbar spine which has been controlled with cyclobenzaprine. She has been able to ambulate without the assistance of a walker. She is working with physical therapy. She has been eating and voiding without difficulty. She has not had a bowel movement postoperatively. She is passing gas. She has received multiple medications as morning to help facilitate and having a bowel movement. She does not have significant abdominal pain. Currently does not complain of nausea, vomiting, fever, or chills. She does have a walker at home if needed. Physical Exam Lumbar Fusion: Status post surgical day number 4 Patient is awake, alert, and oriented 3; patient currently sitting in a bedside chair Vital signs stable Good chest excursion with deep inspiration and expiration Abdomen is soft nontender Dorsiflexion, plantarflexion, and extensor hallucis longus positive sustained bilaterally No signs or symptoms of DVT; no calf pain; pneumatic cuffs not currently intact bilateral lower extremities Tegaderm dressing is clean, dry, and intact over the lumbar spine and right iliac crest; no erythema, purulence, or signs of infection Neurovascularly intact bilaterally lower extremities Assessment: Status post L2-3 and L3-4 minimally invasive posterior lateral decompression and fusion with transforaminal lumbar interbody fusion with removal and revision of hardware at L4-5 Low back pain Lumbar adjacent level degenerative disc disease L2-3 and L3-4 spinal stenosis Lumbar facet arthropathy Lower extremity radiculopathy Constipation Degenerative scoliosis Hyperlipidemia History of heart arrhythmia/palpitations Plan: 1. Ambulate as tolerated; work with Physical Therapy to increase mobilization 2. Continue pain control with oral medications. MAPS was previously reviewed with an Overall Overdose Risk Score of 230. An "Opiod Start Talking" Form has been signed and placed in the patient's chart. We have adjusted her all pain medications for discharge home. A new prescription has been written for Gary 7.5 mg/325 mg 1 every 6 hours as needed for acute pain, dispensed #28. Patient is also given prescription for cyclobenzaprine 10 mg one tab 3 times a day as needed for muscle spasm, dispensed #60 and Senokot-S 1 twice a day as needed for constipation, dispensed #60. These medications are sent to the [facility] pharmacy located within [facility] per request of the patient. 3. Dressings to remain intact; patient may shower with dressings intact 4. We will continue to follow the patient closely; patient has not had a bowel movement postoperatively. She has received multiple medications this morning to help facilitate having a bowel movement. If the patient is able to have a bowel movement today, she is clear for discharge home from orthopedic spine standpoint. Patient is hoping to have a bowel movement today as she is ready for discharge. 5. Patient can follow-up with Nic Nguyen PA-C or Dr. Beto Barkley at [facility] in 2-3 weeks following discharge
[2022-03-12 15:42] VITALS: BP 137/79; PULSE 75; TEMP 98.4
[2022-03-12] MEDS: CYCLOBENZAPRINE 10 MG TAB PO PRN (15:45)
[2022-03-12] MEDS: SODIUM CHLORIDE 0.9% 1,000 ML IV SCH (17:38)
[2022-03-12] MEDS: atenoloL 50 MG TAB PO SCH (18:22)
[2022-03-12] MEDS: FAMOTIDINE 20 MG TAB PO SCH (18:22)
[2022-03-12] MEDS: PRAVASTATIN SODIUM 20 MG TAB PO SCH (18:22)
[2022-03-12] MEDS: VENLAFAXINE HCL 75 MG TAB PO SCH (18:23)
== END 2022-03-12 19:31 | disposition home or self-care (01) | DRG 454 ==
LOC: OR 07:18 → 4SSUR 13:08 → OR 23:08 → OBSVTOIN 03-09 13:07
PROVIDERS: ADMIT Orthopaedic Surgery Orthopaedic Surgery of the Spine; ATTEND Orthopaedic Surgery Orthopaedic Surgery of the Spine
PROC: 8E0WXBZ Computer Assisted Procedure of Trunk Region (ICD-10-PCS; principal; 2022-03-08 08:30)
PROC: 0SG3071 Fusion of Lumbosacral Joint with Autologous Tissue Substitute, Posterior Approach, Posterior Column, Open Approach (ICD-10-PCS; principal; 2022-03-08 08:30)
PROC: 0SG10A0 Fusion of 2 or more Lumbar Vertebral Joints with Interbody Fusion Device, Anterior Approach, Anterior Column, Open Approach (ICD-10-PCS; principal; 2022-03-08 08:30)
PROC: 0ST20ZZ Resection of Lumbar Vertebral Disc, Open Approach (ICD-10-PCS; principal; 2022-03-08 08:30)
PROC: 3E0U0GB Introduction of Recombinant Bone Morphogenetic Protein into Joints, Open Approach (ICD-10-PCS; principal; 2022-03-08 08:30)
PROC: 01NB0ZZ Release Lumbar Nerve, Open Approach (ICD-10-PCS; principal; 2022-03-08 08:30)
PROC: 07DS3ZZ Extraction of Vertebral Bone Marrow, Percutaneous Approach (ICD-10-PCS; principal; 2022-03-08 08:30)
DX: M48.061 Spinal stenosis, lumbar region without neurogenic claudication (principal); E87.2 Acidosis; Z68.42 Body mass index [BMI] 45.0-49.9, adult; M51.16 Intervertebral disc disorders with radiculopathy, lumbar region; M41.9 Scoliosis, unspecified; E78.2 Mixed hyperlipidemia; I10 Essential (primary) hypertension; F41.1 Generalized anxiety disorder; J45.30 Mild persistent asthma, uncomplicated; Z98.84 Bariatric surgery status; K21.9 Gastro-esophageal reflux disease without esophagitis; G31.89 Other specified degenerative diseases of nervous system; F32.9 Major depressive disorder, single episode, unspecified; E55.9 Vitamin D deficiency, unspecified; J30.9 Allergic rhinitis, unspecified; E66.9 Obesity, unspecified; M51.17 Intervertebral disc disorders with radiculopathy, lumbosacral region; R26.81 Unsteadiness on feet; Z28.310 Unvaccinated for COVID-19; K59.00 Constipation, unspecified; M41.80 Other forms of scoliosis, site unspecified; M47.26 Other spondylosis with radiculopathy, lumbar region; Z98.1 Arthrodesis status; Z88.0 Allergy status to penicillin; Z88.2 Allergy status to sulfonamides; Z91.041 Radiographic dye allergy status; Z79.899 Other long term (current) drug therapy; Z87.891 Personal history of nicotine dependence
CPT/HCPCS: 72100; 80048; 85025; 86850; 86891; 86900; 86901; 94760

== ENCOUNTER → 2022-11-28 | Outpatient (CLI) | payer BC ==
--- NOTE | 2022-11-29 08:28 | MM ---
Reason for Exam: Screening (asymptomatic). Last mammogram was performed 1 year(s) and 10 month(s) ago. Patient History: Menarche at age 12. First Full-Term at age 23. Perimenopausal. Patient used Hormonal Contraceptives for 7 years. Maternal cousin had breast cancer, age 39. Maternal aunt had breast cancer, age 40. Risk Values: Pau 5 year model risk: 1.2%. NCI Lifetime model risk: 8.5%. Prior Study Comparison: 04/09/2015 Bilateral Screening Mammogram, [facility]. 01/01/2019 Bilateral Screening Mammogram, [facility]. 02/10/2021 Bilateral Screening Mammogram, [facility]. Tissue Density: The breast tissue is almost entirely fat. Findings: Analyzed By CAD. There is no suspicious group of microcalcifications or new suspicious mass in either breast. Overall Assessment: Negative, BI-RAD 1 Management: Screening Mammogram of both breasts in 1 year. A clinical breast exam by your physician is recommended on an annual basis and results should be correlated with mammographic findings. [facility] will attempt to contact patient to return for supplemental views and ultrasound if indicated. Electronically signed and approved by: Shayne Toledo DO
== END | disposition home or self-care (01) ==
LOC: RADMAMWWP 08:09
PROVIDERS: ATTEND Family Medicine
DX: Z12.31 Encounter for screening mammogram for malignant neoplasm of breast (principal); Z80.3 Family history of malignant neoplasm of breast
CPT/HCPCS: 77067

== ENCOUNTER → 2024-03-27 | Outpatient (CLI) | payer BC ==
--- NOTE | 2024-04-17 15:11 | MM ---
Reason for Exam: Screening (asymptomatic). Last mammogram was performed 1 year(s) and 4 month(s) ago. Patient History: Menarche at age 12. First Full-Term at age 23. Perimenopausal. Patient used Hormonal Contraceptives for 7 years. Maternal cousin had breast cancer, age 39. Maternal aunt had breast cancer, age 40. Risk Values: Pau 5 year model risk: 1.2%. NCI Lifetime model risk: 8.3%. Prior Study Comparison: 01/01/2019 Bilateral Screening Mammogram, [facility]. 02/10/2021 Bilateral Screening Mammogram, [facility]. 11/28/2022 Bilateral MG screening mammo w CAD, [facility]. Tissue Density: The breasts are heterogeneously dense, which may obscure small masses. Findings: Analyzed By CAD. Right breast: There is no suspicious group of microcalcifications or new suspicious mass. Left breast: There is no suspicious group of microcalcifications or new suspicious mass. Overall Assessment: Negative, BI-RAD 1 Management: Screening Mammogram of both breasts in [address] [facility] will attempt to contact patient to return for supplemental views and ultrasound if indicated. Patient should continue monthly self-breast exams. A clinical breast exam by your physician is recommended on an annual basis. This exam should not preclude additional follow-up of suspicious palpable abnormalities. Note on Pau scores and lifetime risk: 1. A Pau score greater than 3% is considered moderate risk. If this is the case, consider specialist referral to assess eligibility for a risk reducing agent. 2. If overall lifetime risk for the development of breast cancer is 20% or higher, the patient may qualify for future screening with alternating mammogram and breast MRI. Electronically signed and approved by: Shayne Toledo DO
== END | disposition home or self-care (01) ==
LOC: RADMAMWWP 12:00
PROVIDERS: ATTEND Family Medicine
DX: Z12.31 Encounter for screening mammogram for malignant neoplasm of breast
CPT/HCPCS: 77063; 77067

== ENCOUNTER → 2024-12-12 | Outpatient (CLI) | payer BC ==
--- NOTE | 2024-12-12 15:04 | CT ---
EXAMINATION TYPE: CT lumbar spine wo con CT DLP: 1940.1 mGycm, Automated exposure control for dose reduction was used. DATE OF EXAM: 12/12/2024 11:12 AM COMPARISON: Fluoroscopic lumbar images 03/08/2022, 03/03/2019, 05/15/2018, MRI lumbar spine 01/30/2018, l umbosacral spine radiographs 07/27/2017. CLINICAL INDICATION:Female, 54 years old with history of M54.50 Lumbago; PHH, Pre-procedural for stim ulator., pain TECHNIQUE: Multiple axial images were obtained from the midportion of T11 through the sacroiliac eloisa nts. Soft tissue and bone windows in coronal and sagittal planes were obtained and reviewed. Contrast used: none. FINDINGS: Alignment: There are 5 lumbar type vertebral bodies. 6 grade 1 anterolisthesis of L4 and L5. Minimal levocurvature of the lumbar spine with apex at L2-L3. Bone: No evidence of fracture is identified. Postsurgical changes with bilateral pedicle screws and rods and disc hardware involving L2-L5. Hardware creates streak artifact which limits evaluation. How ever appears intact with appropriate alignment. Degenerative changes of bilateral SI joints with vacu um disease and sclerosis. Discs: Multilevel disc space narrowing with vacuum disc disease. T12-L1: No spinal canal or neural foraminal stenosis is identified. L1-L2: Left paracentral calcified disc protrusion with mild effacement of the anterior thecal sac. Mi ld right neural foraminal stenosis. The left neural foramen appears patent. L2-L3: Postsurgical changes without gross evidence of significant central canal stenosis. Left kana ctomy defect. L4 facet arthropathy. Mild bilateral neural foraminal stenosis. L3-L4: Postsurgical changes without gross evidence of significant central canal stenosis. Left kana ctomy defect. Moderate to severe right neural foraminal stenosis. Mild left neural foraminal stenosis . L4-L5: Postsurgical changes without gross evidence of significant central canal stenosis. Left kana ctomy defect. Bilateral facet arthropathy. Right neural foramen appears patent. Mild left neural fora estefany stenosis. L5-S1: Suggestive central disc protrusion with mild effacement of the anterior thecal sac. Bilateral facet arthropathy. Moderate bilateral neuroforaminal stenosis. Other: Cholecystectomy clips identified. 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 Right re nal fat containing 1.5 cm lesion most consistent with an angiomyolipoma. Mild atherosclerotic calcifi cation of the aorta and its branches. IMPRESSION: 1. No evidence for spinal fracture. 2. Postsurgical changes of the lumbar spine from L2 through L5. Hardware appears intact with appropri ate alignment. This creates streak artifact which limits evaluation. 3. Multilevel degenerative disc disease and facet arthropathy as described above. 4. Right renal 1.5 cm fat containing lesion most consistent with an angiomyolipoma. [facility], , 12/12/2024 3:02 PM
== END | disposition home or self-care (01) ==
LOC: RADCTMAIN 10:48
PROVIDERS: ATTEND Psychiatry & Neurology Neurology
DX: M47.816 Spondylosis without myelopathy or radiculopathy, lumbar region (principal); M96.1 Postlaminectomy syndrome, not elsewhere classified; N28.89 Other specified disorders of kidney and ureter; Z98.890 Other specified postprocedural states
CPT/HCPCS: 72131